=== PATIENT | female | born 1940 | race Caucasian/White ===

== ENCOUNTER 2020-12-15 17:53 | IRF | payer MEDICARE, SELFPAY ==
--- NOTE | ~2020-12-15 | XR_ITS ---
EXAMINATION: XR G tube evaluation w imaging EXAM DATE: 12/15/2020 21:02 INDICATION: Confirm gastrostomy tube placement. TECHNIQUE: Frontal projection(s) of the abdomen for interpretation. Images obtained after injecting a bout 30 mL Omnipaque solution through the gastrostomy tube. There are no prior studies for comparison . FINDINGS: There is contrast within the stomach from the injection, with gastrostomy balloon anchor ap pearing to be in expected position. Additional contrast or dense material within the colon. There is extensive colonic diverticulosis. Nonobstructive bowel gas pattern. There is a needlelike foreign body projecting over the lower aspect of the chest just right of midlin e, uncertain whether or not this is inside the patient. This finding has been indicated, marked on th e examination for review, clinical correlation. IMPRESSION: 1. Gastrostomy tube in position. 2. Needle like foreign body. 3. Extensive colonic diverticulosis. Reviewed, dictated and finalized at location A. HT LOSS SALES CONSULTANT
--- NOTE | ~2020-12-15 | XR_ITS ---
EXAMINATION: XR barium swallow modified DATE: 12/22/2020 12:21 INDICATION: Dysphagia. TECHNIQUE: The patient was given barium-containing material of multiple consistencies to swallow by fara garcía speech pathologist while I performed fluoroscopy. Dose-area product was 2.163 Gy-cm2. 4.8 minutes fluoroscopy time FINDINGS: Oral Stage: Within functional limits Pharyngeal Phase: There is laryngeal penetration with thin liquids. Cough reflex was induced. There is vallecular residue Cervical/Esophageal Stage: Within functional limits IMPRESSION: Modified esophagram findings as above. Please refer to the speech therapy report for spec [facility] recommendations. Reviewed, dictated and finalized at Location A. Reviewed, dictated and finalized at location A. IST BIOLOGICAL IMPRESSION: Modified esophagram findings as above. Please refer to the speech t herapy report for specific recommendations.
--- NOTE | ~2020-12-15 | XR_ITS ---
EXAMINATION: XR barium swallow modified DATE: 01/01/2021 14:00 INDICATION: Dysphagia. TECHNIQUE: The patient was given barium-containing material of multiple consistencies to swallow by t he speech pathologist while I performed fluoroscopy. Fluoroscopy exposure time was 3.3 minutes. The n umber of fluoroscopy images saved to the PACS was 1. Dose-area product was 1.877 Gy-cm^2. FINDINGS: There was laryngeal penetration with multiple consistencies. No aspiration. IMPRESSION: 1. Laryngeal penetration with multiple consistencies. No aspiration. 2. Please refer to the speech therapy report for recommendations. Reviewed, dictated and finalized at location A. TAL PUBLISHING SPECIALIST
[2020-12-15 18:07] VITALS: BP 134/83; PULSE 81; RESP 20; TEMP 36.7; O2SAT 96; BMI 18.9
[2020-12-15 18:14] VITALS: BMI 18.9
[2020-12-15 22:00] VITALS: BP 134/80; PULSE 88; RESP 18; TEMP 36.4; O2SAT 93
[2020-12-16 01:13] LABS: Glucose Point of Care 112 (65-105)
[2020-12-16 05:07] VITALS: BP 115/67; PULSE 88; RESP 18; TEMP 36.4; O2SAT 96
[2020-12-16 05:36] LABS: Basophils Absolute Auto 0.1 K/mm3 (0.0-0.1); Basophils Percent Auto 1.3 % (0.2-1.2); Eosinophils Absolute Auto 0.4 K/mm3 (0-0.3); Eosinophils Percent Auto 5.7 % (0-4.4); Hematocrit 38.5 % (37.0-47.0); Hemoglobin 12.7 g/dL (12.0-15.0); Immature Granulocyte Absolute 0.03 K/mm3 (0.00-0.031); Immature Granulocyte Percent A 0.4 % (0-0.5); Lymphocytes Absolute Auto 0.65 K/mm3 (0.9-3.2); Mean Corpuscular Hemoglobin 28.8 pg (26-34); Mean Corpuscular Volume 87.3 fl (80-100); Mean Platelet Volume 10.8 fl (7.4-10.4); Monocytes Absolute Auto 1.3 K/mm3 (0.1-0.6); Monocytes Percent Auto 17.9 % (2.6-8.5); Neutrophils Absolute Auto 4.7 K/mm3 (1.3-6.7); Neutrophils Percent Auto 65.7 % (45.5-73.1); Platelet Count Result 327 k/mm3 (150-375); Red Blood Count 4.41 M/mm3 (4.2-5.4); Red Cell Distribution Width 13.1 % (11.5-14.5); White Blood Count 7.2 K/mm3 (4.5-10.0)
[2020-12-16] MEDS: LEVOTHYROXINE SODIUM 50 MCG TABLET FEED TUBE (06:02)
[2020-12-16 06:27] LABS: Anion Gap 3 mmol/L (8-16); Blood Urea Nitrogen 25 mg/dL (7-17); Calcium 8.6 mg/dL (8.4-10.2); Carbon Dioxide 28 mmol/L (22-30); Chloride 106 mmol/L (98-107); Estimated CRCL calculation 37 ml/min; Estimated Glomerular Filt Rate > 60; Glucose 120 mg/dL (65-105); Potassium 4.3 mmol/L (3.4-5.0); Sodium 137 mmol/L (137-145)
[2020-12-16 08:00] VITALS: PULSE 88; RESP 18; O2SAT 96
[2020-12-16] MEDS: ATORVASTATIN 40 MG TABLET FEED TUBE (10:08)
--- NOTE | 2020-12-16 11:59 | WPDREHABHP ---
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 Atrial fibrillation 2. DVT 3. Mitral valvular regurgitation 4. Congestive heart failure 5. Dyslipidemia 6. Anxiety 7. GERD 8. Osteoporosis.Patient was seen [id number] on December 16, 2020 at 11:00 a.m. # history and physical exam: the patient is an 80 years old right-handed female with past medical history of cerebrovascular accident and residual visual deficit in 2018 in addition to the history of atrial fibrillation for which she is on Xarelto, mitral regurgitation, presented to [facility] in [place] , transferred from an OSH on December 07, 2020 . the patient and her had just returned home that morning from a physician visit with her neurologist, according to patient and spouse she was in her normal state of health at 1:20 p.m. however at 1:28 p.m. her found her moaning on the floor and her left side was flaccid. EMS was contacted her NIH stroke scale was 25. She had taken Xarelto the day before. Upon arrival to OSH her blood pressure was 154/94, UA was positive, and COVID antigen was negative. Head CT scan revealed no acute intracranial abnormality. 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 The patient was not a candidate for tPA, and she was transferred to [facility] where the patient underwent an emergent clot retrieval with full cannulization. She was subsequently transferred to ICU postop for close monitoring and was placed on strict glucose control and aspiration precautions. Neurology held her anticoagulation and the patient was started on aspirin and statin. She was also placed on ceftriaxone for UTI treatment with urine cultures in progress. Echocardiogram revealed normal left ventricular systolic function, and ejection fraction of 55 to 66%, mildly elevated right ventricular pressure and severely enlarged atria, severe mitral valve stenosis and moderate mitral regurgitation and moderate to severe aortic regurgitation. Patient had required nicardipine for systolic blood pressure controlled cardiologists did not recommend intervention and recommended outpatient follow-up with a physician. In ICU the patient had an acute ICU delirium and placed on Amari cormier RN, which has resolved and the patient is awake alert oriented x3 with only mild cognitive difficulty. The patient has been NPO due to dysphagia with Keofeed placed on admission. The patient underwent a swallow evaluation which reveals severe oropharyngeal dysphagia with delayed, week's swallowing with penetration during the swallowing and silent aspiration after the swallowing with all attempted consistencies. Physician discussed alternate modes of nutrition until swallowing improves with SHIPPER. On December 13, 2020 the patient underwent a PEG tube placement. She is tolerating tube feeding using Jevity 1.2 mily via PEG at50cc/hour continuously. Rocephin for UTI completed on December 15, 2020. The patient was discharged to [facility] on Xarelto for DVT prophylaxis, which she was on routinely prior to hospitalization as well for atrial fibrillation. Physical examination continued to reveal left-sided weakness, balance impairment, cognitive impairment, decreased gross motor control and decreased safety awareness. Neurologist at the hospital felt the patient has the potential for an excellent outcome from the basilar occlusion. #COVID: The patient has
[2020-12-16 12:02] LABS: Glucose Point of Care 115 (65-105)
[2020-12-16] MEDS: dilTIAZem HCL 30 MG TABLET FEED TUBE ×3 (12:05→23:39)
[2020-12-16 14:00] VITALS: BP 139/87; PULSE 100; RESP 18; TEMP 36.8; O2SAT 96
[2020-12-16] MEDS: RIVAROXABAN 20 MG TABLET FEED TUBE (17:27)
--- NOTE | 2020-12-16 18:08 | PC.NURSE ---
x-ray result showed GT in position, extensive colonic diverticulosis. And 'needle like foreign body' projecting over the lower aspect of the chest wall just right of the midline. Brought to Dr. Segovia attention no orders rec'd at this time, stated he will recheck in the future.
[2020-12-16 18:24] LABS: Glucose Point of Care 122 (65-105)
[2020-12-16 20:00] VITALS: PULSE 90; RESP 18; O2SAT 96
[2020-12-16 21:37] VITALS: BP 113/85; PULSE 90; RESP 18; TEMP 36.2; O2SAT 96
[2020-12-17 00:25] LABS: Glucose Point of Care 132 (65-105)
[2020-12-17 04:41] VITALS: BP 107/72; PULSE 85; RESP 18; TEMP 36.6; O2SAT 96
[2020-12-17] MEDS: dilTIAZem HCL 30 MG TABLET FEED TUBE ×4 (05:50→23:50)
[2020-12-17] MEDS: LEVOTHYROXINE SODIUM 50 MCG TABLET FEED TUBE (05:51)
[2020-12-17 06:33] LABS: Glucose Point of Care 103 (65-105)
[2020-12-17] MEDS: ATORVASTATIN 40 MG TABLET FEED TUBE (10:03)
[2020-12-17 13:43] LABS: Glucose Point of Care 123 (65-105)
[2020-12-17 14:00] VITALS: BP 131/78; PULSE 88; RESP 20; TEMP 37; O2SAT 93
[2020-12-17 17:19] LABS: Glucose Point of Care 117 (65-105)
[2020-12-17] MEDS: RIVAROXABAN 20 MG TABLET FEED TUBE (18:13)
[2020-12-17 21:47] VITALS: BP 124/64; PULSE 91; RESP 18; TEMP 36.4; O2SAT 94
[2020-12-18] MEDS: LEVOTHYROXINE SODIUM 50 MCG TABLET FEED TUBE (05:45)
[2020-12-18] MEDS: dilTIAZem HCL 30 MG TABLET FEED TUBE ×3 (05:45→18:21)
[2020-12-18 06:00] VITALS: BP 113/76; PULSE 70; RESP 20; TEMP 36.6; O2SAT 96
[2020-12-18 06:04] LABS: Glucose Point of Care 124 (65-105)
[2020-12-18 08:00] VITALS: PULSE 70; RESP 20; O2SAT 96
[2020-12-18 08:45] VITALS: TEMP 36.6
[2020-12-18] MEDS: ACETAMINOPHEN ELIXIR 325 MG/10.15 ML UDC 650 MG FEED TUBE (08:45)
[2020-12-18] MEDS: ATORVASTATIN 40 MG TABLET FEED TUBE (08:46)
--- NOTE | 2020-12-18 09:43 | WPDNEURORHBP ---
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 Atrial fibrillation 2. DVT 3. Mitral valve regurgitation 4. Congestive heart failure 5. Dyslipidemia 6. Anxiety 7. GERD 8. Osteoporosis. Patient has been involved in the physical therapy and occupational therapy on today's visit she definitely looks more comfortable more communicative and has no specific complaints Review of Systems Review of Systems: All systems reviewed & are unremarkable except as noted in HPI and below Functional Status Transfers Ability Ability to Transfer In/Out of Chair: Moderate Assistance X 1 Exam Const: General: cooperative, no acute distress, alert, awake and ill appearing Nutritional Appearance: average body habitus and thin Orientation/consciousness: patient oriented x3 Limitations: physical limitations HENMT: Head: normocephalic General nose exam: Normal external nose present and No nasal discharge present Face and sinus: normal facial exam Mouth: Yes Normal oral and palatal mucosa present Eyes: General: appearance normal, both eyes and all related structures Alignment and Position: alignment abnormal Neck: Neck: full ROM Resp: Effort & Inspection: normal respiratory effort and able to speak in complete sentences Auscultation: clear to auscultation bilaterally Cardio: Jugular venous distension: no JVD Rhythm: abnormal rhythm GI: Auscultation: normal bowel sounds Skin: General skin exam: no rashes or lesions noted Neuro: General: oriented to person and oriented to place Cranial nerves: Yes Facial sensation intact/muscles of mastication intact, Yes Equal, round and reactive pupils present, Yes Bilaterally intact EOM present, Yes facial symmetry, Yes Midline tongue present and Yes Ability to bilaterally elevate shoulders present Cognition (Neuro): normal cognition Gait exam (Neuro): Assisted gait required Motor exam (neuro): Abnormal motor strength present ( left hemiparesis) and Abnormal muscle tone present Sensory Exam: Sensory deficit (Neuro) Coordination: [id number] test normal ( on the right) Psych: Speech and movement: Clear speech present and Slowed speech present (Psych) Attitude: cooperative Thought process: Normal thought process present Thought content: Yes Normal thought content present Insight: Fair insight present (Psych) Judgement: Fair judgement present (Psych) Objective Data Vital Signs Vital Signs: Vital Signs - 24 hr 12/17/20 14:00 12/17/20 21:47 12/18/20 06:00 Temperature 37.0 C 36.4 C 36.6 C Pulse Rate 88 91 70 Respiratory Rate 20 18 20 Blood Pressure 131/78 124/64 113/76 Pulse Oximetry 93 94 96 12/18/20 08:45 Temperature 36.6 C Pulse Rate Respiratory Rate Blood Pressure Pulse Oximetry Intake/Output Intake/Output: Intake & Output 12/15/20 12/16/20 12/17/20 12/18/20 23:59 23:59 23:59 23:59 Intake Total 1273 Balance 1273 Meds/Results Medications: Active Medications Generic Name Dose Route Start Last Admin Trade Name Freq PRN Reason Stop Dose Admin Acetaminophen 650 mg 12/15/20 23:20 12/18/20 08:45 Acetaminophen Elixir 325 Mg/10.15 Ml Udc FEED TUBE 650 mg QID PRN Administration Pain Rated 1-3 Albuterol 2 puff 12/15/20 22:13 Albuterol Sulfate (*Sp) Aerosol 1 Puff INHALATION Q4-6H PRN Shortness Of Breath Atorvastatin Calcium 40 mg 12/16/20 09:00 12/18/20 08:46 Atorvastatin 40 Mg Tablet FEED TUBE 40 mg DAILY NIKOLE Administration Diltiazem HCl 30 mg 12/16/20 12:05 12/18/20 05:45 Diltiazem Hcl 30 Mg Tablet FEED TUBE 30 mg Q6HR NIKOLE Administration Fluticasone Propionate 2 spray 12/15/20 22:13 Fluticasone Propionate 0.05% Na Spr 16 Gm Btl (*Bkc) NASAL DAILY PRN Congestion Furosemide 20 mg 12/15/20 22:1
--- NOTE | 2020-12-18 11:11 | RPD ---
INDIVIDUALIZED PLAN OF CARE FOR Sarah Ghosh Brief Synthesis of Pre-Admission Screen, Post-Admission Evaluation and Therapy Evaluations: The patient presents to rehab with an acute basilar artery thrombosis s/p thrombectomy. 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 The complexity of the patient's medical management, nursing, and therapy needs require an inpatient rehab hospital stay with a physician-led interdisciplinary team approach. The patient?s needs will be best met in an intensive program vs. at a lower level of care. The patient requires physician services for neurology services, medical oversight, and coordination of care. Emotional needs will be monitored as depression is a common sequelae of stroke. The patient needs physician monitoring and treatment of hypertension, hypocalcemia, dysphagia, UTI, acute hypoxic respiratory failure, hyperglycemia, monitoring for adverse reactions to new medications, monitoring of infection, and pain control. The patient requires nursing services for frequent neuro checks, anticoagulation therapy, medication management and education, pressure relief and skin care management, monitoring of labs, bowel and bladder training, diabetes management and education, and fall/safety precautions. Deficits include:ADLs, Balance, Cognition, Endurance, Family Training/Education, Mobility, Pain Management, ROM, Safety, Speech, Strength, Swallowing, and Transfers. Recoater/Case Management for: Discharge Planning and Patient/Family Counseling Physical Therapy: 5 days per week for 60 minutes. Treatments may include: Therapeutic Exercise, Gait Training, Neuromuscular Re-education, Transfer Training, Community Reintegration, Bed Mobility, Patient/Family Education, Wheelchair Mobility Group Therapy/Concurrent Therapy Rationales: -Improve attention span during functional activities in a distracted environment. -Enhance problem solving and/or adequate judgment skills during functional activities in a distracted environment. -Promote increased safety awareness in a distracted environment to reduce fall risk with functional tasks, transfers, and ambulation to allow a more safe, self-sufficient return to the home environment. -Improve dynamic balance skills to promote safety and independence with functional activities in a distracted environment for maximum gain. Occupational Therapy: 5 days per week for 60 minutes. Treatments may include: Therapeutic Exercise, Therapeutic Activity, Cognitive Training, Self-Care Transfer Training, Community Reintegration, Home Management, Patient/Family Education, Wheelchair Mobility Training, Energy Conservation Training Group Therapy/Concurrent Therapy Rationales: -Allow therapist to observe and teach generalization and carry-over of skills learned in individual therapy. -Enhance problem solving and sequencing skills during therapeutic activities in a distracted environment. -Promote increased safety awareness in a realistic setting to reduce fall risk with functional tasks due to visual and verbal distractions. -Increase functional level with ADLs, ADL transfers and use of adaptive equipment through therapeutic activities with others while promoting safety to allow a more safe, self-sufficient return home. Speech Therapy: 5 days per week for 60 minutes. Treatments may include: Dysphasia Therapy, Speech/Language/Communication Therapy, Cognitive Training, Patient/Family Education Group Therapy/Concurrent Therapy - Rationale: -Allow therapist to observe and teach generalization and carry-over of skills learned in individual therapy. -Improve comprehension skills with complex or abstract idea
[2020-12-18 12:19] LABS: Glucose Point of Care 117 (65-105)
[2020-12-18 14:00] VITALS: BP 116/78; PULSE 104; RESP 18; TEMP 36.2; O2SAT 98
[2020-12-18 14:38] VITALS: BMI 20.5
--- NOTE | 2020-12-18 15:28 | PCNSR ---
On 12/18/20, the student, Evie Pickering, provided care and completed [facility] documentation on this patient. I have reviewed the student's documentation and agree with the findings.
[2020-12-18] MEDS: RIVAROXABAN 20 MG TABLET FEED TUBE (18:21)
[2020-12-18 21:25] VITALS: BP 122/72; PULSE 56; RESP 22; TEMP 36.2; O2SAT 97
[2020-12-19] MEDS: dilTIAZem HCL 30 MG TABLET FEED TUBE ×4 (00:21→17:53)
[2020-12-19] MEDS: ACETAMINOPHEN ELIXIR 325 MG/10.15 ML UDC 650 MG FEED TUBE (00:23)
[2020-12-19 00:37] LABS: Glucose Point of Care 104 (65-105)
[2020-12-19 05:35] VITALS: BP 109/65; PULSE 73; RESP 22; TEMP 36; O2SAT 100
[2020-12-19] MEDS: LEVOTHYROXINE SODIUM 50 MCG TABLET FEED TUBE (06:38)
[2020-12-19 06:46] LABS: Glucose Point of Care 120 (65-105)
[2020-12-19 09:38] VITALS: RESP 20; TEMP 36.6
[2020-12-19] MEDS: ATORVASTATIN 40 MG TABLET FEED TUBE (09:48)
[2020-12-19 12:09] LABS: Glucose Point of Care 87 (65-105)
--- NOTE | 2020-12-19 12:49 | PCNFU ---
Nutrition Follow-Up Complete: Swallowing difficulties related to dysphagia as evidenced by PEG tube. Goal: Patient to tolerate tube feedings at goal rate Pt current nutrition is Jevity 1.5 @ 65 with prostat once a day. Last recorded weight is 54.1 kg. Recommend re-weighing patient. Bowel Motility: + BM 12/18 Labs Reviewed: Glu 120 Meds Noted: Albuterol, Lipitor, Synthroid, Proventil, Seroquel, Xarelto, Antivert Additional Notes: Spoke with patient today. Patient reports having no appetite and not wanting to try to eat anything. She is very weak. Patient is currently on Jevity 1.5 @ 65 ml/hr for 13 hours as well as prostat flush once a day providing 1367 calories, 642 mls of water, and 69 grams of protein. Monitor patients labs, medications, weight, and tube feeding every Friday and Friday.
--- NOTE | 2020-12-19 13:08 | PCNSR ---
On 12/19/20, the student,Evie Pickering, provided care and completed [facility] documentation on this patient. I have reviewed the student's documentation and agree with the findings.
--- NOTE | 2020-12-19 13:13 | WPDNEURORHBP ---
Subjective Date/time seen: 12/19/20 13:13 80 years old with diagnosis of stroke secondary to acute basilar artery thrombosis and status post thrombectomy but significant neurological deficit has ongoing diagnosis of atrial fibrillation, DVT, mitral valve regurgitation, congestive heart failure, dyslipidemia, anxiety, GERD, and osteoporosis patient has been involved in the physical therapy and occupational therapy case was discussed in the Family weekly me and if everything goes well she will be discharged on January 04, 2021 Review of Systems Review of Systems: All systems reviewed & are unremarkable except as noted in HPI and below Functional Status Transfers Ability Ability to Transfer In/Out of Chair: Moderate Assistance X 1 Exam Const: General: cooperative, no acute distress, alert, awake, anxious and ill appearing Nutritional Appearance: average body habitus and thin Orientation/consciousness: oriented to person and oriented to place Limitations: other limitations ( left-sided neurological deficit) HENMT: Head: normocephalic Ears: hearing grossly normal bilaterally General nose exam: No nasal discharge present Eyes: General: appearance normal, both eyes and all related structures Eyelids: eyelids normal Conjunctivae: conjunctivae normal Sclera: sclerae normal Cornea: corneas normal Neck: Neck: full ROM Resp: Effort & Inspection: normal respiratory effort and able to speak in complete sentences Auscultation: clear to auscultation bilaterally Cardio: Jugular venous distension: no JVD Rhythm: abnormal rhythm GI: Auscultation: normal bowel sounds Neuro: General: oriented to person, oriented to place, moves all extremities and no meningeal signs Cranial nerves: Yes Equal, round and reactive pupils present, Yes Normal accommodation reflex present, Yes Bilaterally intact EOM present, Yes Nystagmus not present, Yes Normal facial strength present, Yes Midline tongue present and Yes Normal hearing present Cognition (Neuro): normal cognition Gait exam (Neuro): Unable to assess gait Motor exam (neuro): Abnormal motor strength present ( left-sided neurological deficit) Sensory Exam: Sensory deficit (Neuro) Deep tendon reflexes (DTR's): Right triceps reflex intensity grade: 1+, Left triceps reflex intensity grade: 2+, Rt Biceps (C5, C6): 1+, Left biceps reflex intensity grade: 2+, Right brachioradialis reflex intensity grade: 1+, Left brachioradialis reflex intensity grade: 2+, Right patellar reflex intensity grade: 1+, Left patellar reflex intensity grade: 2+, Right ankle reflex intensity grade: 1+ and Left ankle reflex intensity grade: 2+ Plantar Reflex Responses: downgoing: right and upgoing (positive Babinski): left Coordination: [id number] test normal ( right side) Psych: Speech and movement: Normal speech and movement present Affect: Sad affect present Thought content: Yes Normal thought content present Insight: Fair insight present (Psych) Objective Data Vital Signs Vital Signs: Vital Signs - 24 hr 12/18/20 14:00 12/18/20 21:25 12/19/20 05:35 Temperature 36.2 C L 36.2 C L 36.0 C L Pulse Rate 104 H 56 L 73 Respiratory Rate 18 22 H 22 H Blood Pressure 116/78 122/72 109/65 Pulse Oximetry 98 97 100 12/19/20 09:38 Temperature 36.6 C Pulse Rate Respiratory Rate 20 Blood Pressure Pulse Oximetry Intake/Output Intake/Output: Intake & Output 12/16/20 12/17/20 12/18/20 12/19/20 23:59 23:59 23:59 23:59 Intake Total 1273 Balance 1273 Meds/Results Medications: Active Medications Generic Name Dose Route Start Last Admin Trade Name Freq PRN Reason Stop Dose Admin Acetaminophen 650 mg 12/15/20 23:20 12/19/20 00:23 Acetaminophen Elixir 325 Mg/10.15 Ml Udc FEED TUBE 650 mg QID PRN Administration Pain Rated 1-3 Albuterol 2 puff 12/15/20 22:13 Albuterol Sulfate (*Sp) Aerosol 1 Puff INHALATION Q4-6H PRN Shortness Of Breath Atorvastatin Calcium 40 mg 12/16/20 09:0
[2020-12-19 14:00] VITALS: BP 115/70; PULSE 46; RESP 18; TEMP 36.8; O2SAT 100
[2020-12-19 16:31] VITALS: PULSE 92
[2020-12-19 16:55] LABS: Glucose Point of Care 100 (65-105)
[2020-12-19] MEDS: RIVAROXABAN 20 MG TABLET FEED TUBE (17:53)
[2020-12-19] MEDS: NEOMYCIN/POLYMYXIN/BACITRACIN OINTMENT 15 GM TUBE 1 APPLIC TOPICAL (19:05)
[2020-12-19 21:38] LABS: Glucose Point of Care 123 (65-105)
[2020-12-19 21:56] VITALS: BP 106/67; PULSE 77; RESP 18; TEMP 36.5; O2SAT 97
[2020-12-20] MEDS: dilTIAZem HCL 30 MG TABLET FEED TUBE ×5 (00:30→23:25)
[2020-12-20] MEDS: ACETAMINOPHEN ELIXIR 325 MG/10.15 ML UDC 650 MG FEED TUBE (00:31)
[2020-12-20 06:00] VITALS: BP 114/57; PULSE 64; RESP 20; TEMP 36.4; O2SAT 98
[2020-12-20] MEDS: LEVOTHYROXINE SODIUM 50 MCG TABLET FEED TUBE (06:13)
[2020-12-20 06:30] LABS: Glucose Point of Care 126 (65-105)
[2020-12-20] MEDS: NEOMYCIN/POLYMYXIN/BACITRACIN OINTMENT 15 GM TUBE 1 APPLIC TOPICAL (09:38)
[2020-12-20] MEDS: ATORVASTATIN 40 MG TABLET FEED TUBE (09:38)
[2020-12-20 14:00] VITALS: BP 120/76; PULSE 85; RESP 22; TEMP 36.6; O2SAT 95
--- NOTE | 2020-12-20 16:19 | WPDNEURORHBP ---
Subjective Date/time seen: is status post stroke with acute basilar artery thrombosis and followed by thrombectomy but with left-sided neurological deficit in addition to history of atrial fibrillation, mitral valve regurgitation, DVT, congestive heart failure, GERD, osteoporosis, and anxiety. Vital signs today are stable she is afebrile with temp of 36.6? pulse ox 95% respiration 22 pulse 85 blood pressure 120/76, there is no specific change in the medication she is continuing on rivaroxaban 20 mg daily and has no new lab Review of Systems Review of Systems: All systems reviewed & are unremarkable except as noted in HPI and below Functional Status Ambulation Ability Ambulation Assistive Devices: Parallel Bars Transfers Ability Ability to Transfer In/Out of Chair: Moderate Assistance X 1 Exam Const: General: cooperative, comfortable and no acute distress Nutritional Appearance: average body habitus and thin Orientation/consciousness: patient oriented x3 Limitations: physical limitations HENMT: Ears: hearing grossly normal bilaterally Eyes: General: appearance normal, both eyes and all related structures Neck: Neck: full ROM Resp: Effort & Inspection: normal respiratory effort and able to speak in complete sentences Auscultation: clear to auscultation bilaterally Cardio: Rate: regular rate Rhythm: abnormal rhythm GI: Auscultation: normal bowel sounds Skin: General skin exam: no rashes or lesions noted Neuro: General: patient oriented x3 Cranial nerves: Yes CN's II-XII intact bilaterally Cognition (Neuro): normal cognition Gait exam (Neuro): Assisted gait required Motor exam (neuro): Abnormal motor strength present Sensory Exam: Sensory deficit (Neuro) Coordination: [id number] test normal ( right side) Psych: Appearance: grossly normal Objective Data Vital Signs Vital Signs: Vital Signs - 24 hr 12/19/20 16:31 12/19/20 21:56 12/20/20 06:00 Temperature 36.5 C 36.4 C Pulse Rate 92 77 64 Respiratory Rate 18 20 Blood Pressure 106/67 114/57 L Pulse Oximetry 97 98 12/20/20 14:00 Temperature 36.6 C Pulse Rate 85 Respiratory Rate 22 H Blood Pressure 120/76 Pulse Oximetry 95 Meds/Results Medications: Active Medications Generic Name Dose Route Start Last Admin Trade Name Freq PRN Reason Stop Dose Admin Acetaminophen 650 mg 12/15/20 23:20 12/20/20 00:31 Acetaminophen Elixir 325 Mg/10.15 Ml Udc FEED TUBE 650 mg QID PRN Administration Pain Rated 1-3 Albuterol 2 puff 12/15/20 22:13 Albuterol Sulfate (*Sp) Aerosol 1 Puff INHALATION Q4-6H PRN Shortness Of Breath Atorvastatin Calcium 40 mg 12/16/20 09:00 12/20/20 09:38 Atorvastatin 40 Mg Tablet FEED TUBE 40 mg DAILY NIKOLE Administration Diltiazem HCl 30 mg 12/16/20 12:05 12/20/20 13:14 Diltiazem Hcl 30 Mg Tablet FEED TUBE 30 mg Q6HR NIKOLE Administration Fluticasone Propionate 2 spray 12/15/20 22:13 Fluticasone Propionate 0.05% Na Spr 16 Gm Btl (*Bkc) NASAL DAILY PRN Congestion Furosemide 20 mg 12/15/20 22:13 Furosemide 20 Mg Tablet FEED TUBE DAILY PRN Edema Levothyroxine Sodium 50 mcg 12/16/20 06:30 12/20/20 06:13 Levothyroxine Sodium 50 Mcg Tablet FEED TUBE 50 mcg DAILY@0630 NIKOLE Administration Meclizine HCl 25 mg 12/15/20 22:13 Meclizine Hcl 25 Mg Tablet FEED TUBE BID PRN Dizziness Neomycin/Polymyxin/Bacitracin 1 applic 12/19/20 18:55 12/20/20 09:38 Neomycin/Polymyxin/Bacitracin Ointment 15 Gm Tube TOPICAL 1 applic QAM NIKOLE Administration Quetiapine Fumarate 12.5 mg 12/15/20 21:00 Quetiapine Fumarate 12.5 Mg Tablet FEED TUBE HS PRN NIGHTLY AGITATION Rivaroxaban 20 mg 12/16/20 17:00 12/19/20 17:53 Rivaroxaban 20 Mg Tablet FEED TUBE 20 mg DAILY@1700 [facility] Administration Radiology Results: ITS Impressions Contrast Injection Evaluation 12/15/20 21:08 IMPRESSION: 1. Gastrostomy tube i
[2020-12-20] MEDS: RIVAROXABAN 20 MG TABLET FEED TUBE (18:21)
[2020-12-20 20:00] VITALS: PULSE 87; RESP 20; O2SAT 98
[2020-12-20 21:53] VITALS: BP 120/70; PULSE 87; RESP 20; TEMP 36.7; O2SAT 98
[2020-12-21 05:47] VITALS: BP 114/84; PULSE 84; RESP 18; TEMP 36.6; O2SAT 93
[2020-12-21] MEDS: dilTIAZem HCL 30 MG TABLET FEED TUBE ×4 (05:58→23:43)
[2020-12-21] MEDS: LEVOTHYROXINE SODIUM 50 MCG TABLET FEED TUBE (05:58)
[2020-12-21 06:32] LABS: Glucose Point of Care 134 (65-105)
[2020-12-21] MEDS: ATORVASTATIN 40 MG TABLET FEED TUBE (08:56)
[2020-12-21] MEDS: NEOMYCIN/POLYMYXIN/BACITRACIN OINTMENT 15 GM TUBE 1 APPLIC TOPICAL (08:56)
--- NOTE | 2020-12-21 12:43 | WPDNEURORHBP ---
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 pulse 84 respiration 18 pulse ox 93% blood pressure 114/84 Review of Systems Review of Systems: All systems reviewed & are unremarkable except as noted in HPI and below Functional Status Ambulation Ability Ambulation Assistive Devices: Parallel Bars Transfers Ability Ability to Transfer In/Out of Chair: Moderate Assistance X 1 Exam Const: General: cooperative Nutritional Appearance: average body habitus and thin Orientation/consciousness: oriented to person HENMT: Head: normocephalic Ears: hearing grossly normal bilaterally General nose exam: Normal external nose present Face and sinus: normal facial exam Mouth: Yes Normal oral and palatal mucosa present Neck: Neck: full ROM Resp: Effort & Inspection: normal respiratory effort Auscultation: clear to auscultation bilaterally Cardio: Jugular venous distension: no JVD Rate: regular rate GI: Auscultation: normal bowel sounds Skin: General skin exam: no rashes or lesions noted Neuro: General: oriented to person and oriented to place Cognition (Neuro): normal cognition Gait exam (Neuro): Assisted gait required Motor exam (neuro): Abnormal motor strength present ( left hemiparesis) and Abnormal muscle tone present Sensory Exam: Sensory deficit (Neuro) Plantar Reflex Responses: upgoing (positive Babinski): left and equivocal: right and bilateral Coordination: [id number] test normal ( right side) Objective Data Vital Signs Vital Signs: Vital Signs - 24 hr 12/20/20 14:00 12/20/20 20:00 12/20/20 21:53 Temperature 36.6 C 36.7 C Pulse Rate 85 87 87 Respiratory Rate 22 H 20 20 Blood Pressure 120/76 120/70 Pulse Oximetry 95 98 98 12/21/20 05:47 Temperature 36.6 C Pulse Rate 84 Respiratory Rate 18 Blood Pressure 114/84 Pulse Oximetry 93 Meds/Results Medications: Active Medications Generic Name Dose Route Start Last Admin Trade Name Freq PRN Reason Stop Dose Admin Acetaminophen 650 mg 12/15/20 23:20 12/20/20 00:31 Acetaminophen Elixir 325 Mg/10.15 Ml Udc FEED TUBE 650 mg QID PRN Administration Pain Rated 1-3 Albuterol 2 puff 12/15/20 22:13 Albuterol Sulfate (*Sp) Aerosol 1 Puff INHALATION Q4-6H PRN Shortness Of Breath Atorvastatin Calcium 40 mg 12/16/20 09:00 12/21/20 08:56 Atorvastatin 40 Mg Tablet FEED TUBE 40 mg DAILY NIKOLE Administration Diltiazem HCl 30 mg 12/16/20 12:05 12/21/20 12:25 Diltiazem Hcl 30 Mg Tablet FEED TUBE 30 mg Q6HR NIKOLE Administration Fluticasone Propionate 2 spray 12/15/20 22:13 Fluticasone Propionate 0.05% Na Spr 16 Gm Btl (*Bkc) NASAL DAILY PRN Congestion Furosemide 20 mg 12/15/20 22:13 Furosemide 20 Mg Tablet FEED TUBE DAILY PRN Edema Levothyroxine Sodium 50 mcg 12/16/20 06:30 12/21/20 05:58 Levothyroxine Sodium 50 Mcg Tablet FEED TUBE 50 mcg DAILY@0630 NIKOLE Administration Meclizine HCl 25 mg 12/15/20 22:13 Meclizine Hcl 25 Mg Tablet FEED TUBE BID PRN Dizziness Neomycin/Polymyxin/Bacitracin 1 applic 12/19/20 18:55 12/21/20 08:56 Neomycin/Polymyxin/Bacitracin Ointment 15 Gm Tube TOPICAL 1 applic QAM NIKOLE Administration Quetiapine Fumarate 12.5 mg 12/15/20 21:00 Quetiapine Fumarate 12.5 Mg Tablet FEED TUBE HS PRN NIGHTLY AGITATION Rivaroxaban 20 mg 12/16/20 17:00 0
[2020-12-21 14:00] VITALS: BP 119/71; PULSE 72; RESP 18; TEMP 37.1; O2SAT 100
[2020-12-21] MEDS: RIVAROXABAN 20 MG TABLET FEED TUBE (17:15)
[2020-12-21 20:00] VITALS: PULSE 66; RESP 20; O2SAT 99
[2020-12-21 20:46] LABS: Glucose Point of Care 122 (65-105)
[2020-12-21 22:00] VITALS: BP 109/61; PULSE 66; RESP 18; TEMP 36.7; O2SAT 99
[2020-12-22 04:50] VITALS: BP 116/83; PULSE 88; RESP 20; TEMP 36.8; O2SAT 97
[2020-12-22] MEDS: dilTIAZem HCL 30 MG TABLET FEED TUBE ×3 (05:10→17:30)
[2020-12-22] MEDS: LEVOTHYROXINE SODIUM 50 MCG TABLET FEED TUBE (05:10)
[2020-12-22 06:21] LABS: Glucose Point of Care 139 (65-105)
[2020-12-22] MEDS: ATORVASTATIN 40 MG TABLET FEED TUBE (08:20)
[2020-12-22] MEDS: ACETAMINOPHEN ELIXIR 325 MG/10.15 ML UDC 650 MG FEED TUBE (08:20)
[2020-12-22] MEDS: NEOMYCIN/POLYMYXIN/BACITRACIN OINTMENT 15 GM TUBE 1 APPLIC TOPICAL (08:29)
--- NOTE | 2020-12-22 12:03 | PCDIET ---
Nutrition Follow-Up Complete: Nutrition Diagnosis: Swallowing difficulties related to dysphagia as evidenced by PEG tube. Nutrition Goal: Patient to tolerate tube feedings at goal rate Goal met. Patient tolerating Jevity 1.5 at 65mL/hr x 13 hours per day with Pro-Stat 1x daily and 30mL water flush every 4 hours. No issues, per RN. Plan for swallow study today. Last recorded weight is 52.9 kg which is down from last review, but up from admission. Bowel Motility: Last documented BM on 12/21/20. Labs Reviewed: Glu (139) Meds Noted: Lipitor, Synthroid, Cardizem Additional Notes: No documented skin breakdown. Will continue to monitor with same goals. Nutrition Monitoring and Evaluation: Follow up every Friday/Friday.
[2020-12-22 14:00] VITALS: BP 139/70; PULSE 82; RESP 20; TEMP 36.4; O2SAT 99
--- NOTE | 2020-12-22 15:03 | WPDNEURORHBP ---
Subjective Date/time seen: 12/22/20 15:03 acute basilar artery thrombosis followed by the thrombotic me and with residual neurological deficits particularly on the left side has been involved in the physical therapy and occupational therapy and generally stable, her vital signs are stable Review of Systems Review of Systems: All systems reviewed & are unremarkable except as noted in HPI and below Functional Status Ambulation Ability Ambulation Assistive Devices: Parallel Bars Transfers Ability Ability to Transfer In/Out of Chair: Moderate Assistance X 1 Exam Const: General: cooperative and comfortable Nutritional Appearance: average body habitus and thin Limitations: physical limitations Eyes: General: appearance normal, both eyes and all related structures Neck: Neck: full ROM Resp: Effort & Inspection: normal respiratory effort Auscultation: clear to auscultation bilaterally Cardio: Rate: regular rate Rhythm: regular rhythm GI: Auscultation: normal bowel sounds Neuro: General: oriented to person and oriented to place Cognition (Neuro): abnormal cognition Speech: normal speech Gait exam (Neuro): Assisted gait required Motor exam (neuro): Abnormal motor strength present Sensory Exam: Sensory deficit (Neuro) Plantar Reflex Responses: equivocal: bilateral Psych: Appearance: grossly normal Objective Data Vital Signs Vital Signs: Vital Signs - 24 hr 12/21/20 20:00 12/21/20 22:00 12/22/20 04:50 Temperature 36.7 C 36.8 C Pulse Rate 66 66 88 Respiratory Rate 20 18 20 Blood Pressure 109/61 116/83 Pulse Oximetry 99 99 97 Intake/Output Intake/Output: Intake & Output 12/19/20 12/20/20 12/21/20 12/22/20 23:59 23:59 23:59 23:59 Intake Total 1080 Balance 1080 Meds/Results Medications: Active Medications Generic Name Dose Route Start Last Admin Trade Name Freq PRN Reason Stop Dose Admin Acetaminophen 650 mg 12/15/20 23:20 12/22/20 08:20 Acetaminophen Elixir 325 Mg/10.15 Ml Udc FEED TUBE 650 mg QID PRN Administration Pain Rated 1-3 Albuterol 2 puff 12/15/20 22:13 Albuterol Sulfate (*Sp) Aerosol 1 Puff INHALATION Q4-6H PRN Shortness Of Breath Atorvastatin Calcium 40 mg 12/16/20 09:00 12/22/20 08:20 Atorvastatin 40 Mg Tablet FEED TUBE 40 mg DAILY NIKOLE Administration Diltiazem HCl 30 mg 12/16/20 12:05 12/22/20 12:46 Diltiazem Hcl 30 Mg Tablet FEED TUBE 30 mg Q6HR NIKOLE Administration Fluticasone Propionate 2 spray 12/15/20 22:13 Fluticasone Propionate 0.05% Na Spr 16 Gm Btl (*Bkc) NASAL DAILY PRN Congestion Furosemide 20 mg 12/15/20 22:13 Furosemide 20 Mg Tablet FEED TUBE DAILY PRN Edema Levothyroxine Sodium 50 mcg 12/16/20 06:30 12/22/20 05:10 Levothyroxine Sodium 50 Mcg Tablet FEED TUBE 50 mcg DAILY@0630 NIKOLE Administration Meclizine HCl 25 mg 12/15/20 22:13 Meclizine Hcl 25 Mg Tablet FEED TUBE BID PRN Dizziness Neomycin/Polymyxin/Bacitracin 1 applic 12/19/20 18:55 12/22/20 08:29 Neomycin/Polymyxin/Bacitracin Ointment 15 Gm Tube TOPICAL 1 applic QAM NIKOLE Administration Quetiapine Fumarate 12.5 mg 12/15/20 21:00 Quetiapine Fumarate 12.5 Mg Tablet FEED TUBE HS PRN NIGHTLY AGITATION Rivaroxaban 20 mg 12/16/20 17:00 12/21/20 17:15 Rivaroxaban 20 Mg Tablet FEED TUBE 20 mg DAILY@1700 NIKOLE Administration Radiology Results: ITS Impressions Contrast Injection Evaluation 12/15/20 21:08 IMPRESSION: 1. Gastrostomy tube in position. 2. Needle like foreign body. 3. Extensive colonic diverticulosis. Labs Labs: Laboratory Results - last 24 hr 12/21/20 12/22/20 20:41 06:18 POC Capillary Glucose 122 H 139 H Progress Note: A&P Assessment and Plan (1) Hemorrhoids: Code(s): K64.9 - Unspecified hemorrhoids Status: Acute (2) Mild cognitive impairment: Code(s): G31.84 - Mild cognitive impai
[2020-12-22] MEDS: RIVAROXABAN 20 MG TABLET FEED TUBE (17:30)
[2020-12-22 22:00] VITALS: BP 111/63; PULSE 69; RESP 18; TEMP 36.4; O2SAT 98
[2020-12-23] MEDS: dilTIAZem HCL 30 MG TABLET FEED TUBE ×5 (00:37→23:41)
[2020-12-23 00:44] LABS: Glucose Point of Care 129 (65-105)
[2020-12-23 04:55] LABS: Basophils Absolute Auto 0.1 K/mm3 (0.0-0.1); Eosinophils Absolute Auto 0.3 K/mm3 (0-0.3); Eosinophils Percent Auto 5.8 % (0-4.4); Hematocrit 39.7 % (37.0-47.0); Hemoglobin 12.7 g/dL (12.0-15.0); Immature Granulocyte Absolute 0.02 K/mm3 (0.00-0.031); Immature Granulocyte Percent A 0.3 % (0-0.5); Lymphocytes Absolute Auto 0.61 K/mm3 (0.9-3.2); Lymphocytes Percent Auto 10.7 % (18.3-44.2); Mean Corpuscular Hemoglobin 29.1 pg (26-34); Mean Corpuscular Volume 91.1 fl (80-100); Mean Platelet Volume 10.4 fl (7.4-10.4); Monocytes Percent Auto 18.2 % (2.6-8.5); Neutrophils Absolute Auto 3.7 K/mm3 (1.3-6.7); Platelet Count Result 365 k/mm3 (150-375); Red Blood Count 4.36 M/mm3 (4.2-5.4); Red Cell Distribution Width 12.9 % (11.5-14.5); White Blood Count 5.7 K/mm3 (4.5-10.0)
[2020-12-23 05:09] LABS: Anion Gap 4 mmol/L (8-16); Blood Urea Nitrogen 30 mg/dL (7-17); Calcium 8.5 mg/dL (8.4-10.2); Carbon Dioxide 32 mmol/L (22-30); Chloride 104 mmol/L (98-107); Estimated CRCL calculation 39 ml/min; Estimated Glomerular Filt Rate > 60; Glucose 93 mg/dL (65-105); Potassium 4.1 mmol/L (3.4-5.0); Sodium 140 mmol/L (137-145)
[2020-12-23] MEDS: LEVOTHYROXINE SODIUM 50 MCG TABLET FEED TUBE (05:09)
[2020-12-23 05:13] VITALS: BP 114/66; PULSE 61; RESP 18; TEMP 36.3; O2SAT 96
[2020-12-23 05:55] LABS: Glucose Point of Care 98 (65-105)
[2020-12-23] MEDS: NEOMYCIN/POLYMYXIN/BACITRACIN OINTMENT 15 GM TUBE 1 APPLIC TOPICAL (09:06)
[2020-12-23] MEDS: ATORVASTATIN 40 MG TABLET FEED TUBE (09:06)
[2020-12-23 14:00] VITALS: BP 121/67; PULSE 69; RESP 18; TEMP 36.1; O2SAT 95
[2020-12-23] MEDS: RIVAROXABAN 20 MG TABLET FEED TUBE (18:08)
[2020-12-23 21:25] VITALS: BP 107/66; PULSE 49; RESP 20; TEMP 36.1; O2SAT 94
[2020-12-23 23:41] VITALS: PULSE 68
[2020-12-24 05:16] VITALS: BP 130/59; PULSE 86; RESP 16; TEMP 36.3; O2SAT 98
[2020-12-24] MEDS: dilTIAZem HCL 30 MG TABLET FEED TUBE ×4 (05:44→23:00)
[2020-12-24] MEDS: LEVOTHYROXINE SODIUM 50 MCG TABLET FEED TUBE (05:44)
[2020-12-24 06:01] LABS: Glucose Point of Care 143 (65-105)
[2020-12-24] MEDS: NEOMYCIN/POLYMYXIN/BACITRACIN OINTMENT 15 GM TUBE 1 APPLIC TOPICAL (08:55)
[2020-12-24] MEDS: ATORVASTATIN 40 MG TABLET FEED TUBE (08:55)
[2020-12-24 14:00] VITALS: BP 118/72; PULSE 97; RESP 16; TEMP 36.7; O2SAT 97
[2020-12-24] MEDS: RIVAROXABAN 20 MG TABLET FEED TUBE (17:18)
[2020-12-24 20:30] VITALS: PULSE 77; RESP 18; O2SAT 96
[2020-12-24 21:31] VITALS: BP 96/64; PULSE 77; RESP 18; TEMP 35.8; O2SAT 96
[2020-12-25] MEDS: dilTIAZem HCL 30 MG TABLET FEED TUBE ×4 (05:42→22:59)
[2020-12-25] MEDS: LEVOTHYROXINE SODIUM 50 MCG TABLET FEED TUBE (05:42)
[2020-12-25 05:48] VITALS: BP 109/50; PULSE 75; RESP 16; TEMP 35.7; O2SAT 98
[2020-12-25 06:36] LABS: Glucose Point of Care 133 (65-105)
[2020-12-25] MEDS: ATORVASTATIN 40 MG TABLET FEED TUBE (09:41)
--- NOTE | 2020-12-25 11:01 | WPDNEURORHBP ---
Subjective Date/time seen: 12/25/20 11:01 acute basilar artery thrombosis followed the neurological deficit on the left side has been extremely communicative now involving all the therapies and has no specific complaints Review of Systems Review of Systems: All systems reviewed & are unremarkable except as noted in HPI and below Functional Status Ambulation Ability Ambulation Assistive Devices: Parallel Bars Transfers Ability Ability to Transfer In/Out of Chair: Moderate Assistance X 1 Exam Const: General: no acute distress HENMT: Head: normal to inspection Ears: hearing grossly normal bilaterally Face and sinus: normal facial exam Mouth: Yes Normal oral and palatal mucosa present Neck: Neck: full ROM and no lymphadenopathy Resp: Effort & Inspection: normal respiratory effort and able to speak in complete sentences Auscultation: clear to auscultation bilaterally Cardio: Rate: regular rate GI: Auscultation: normal bowel sounds Neuro: General: patient oriented x3 Cranial nerves: Yes CN's II-XII intact bilaterally Motor exam (neuro): Abnormal motor strength present Deep tendon reflexes (DTR's): Right triceps reflex intensity grade: 1+, Left triceps reflex intensity grade: 2+, Rt Biceps (C5, C6): 1+, Left biceps reflex intensity grade: 2+, Right brachioradialis reflex intensity grade: 1+, Left brachioradialis reflex intensity grade: 2+, Right patellar reflex intensity grade: 1+, Right ankle reflex intensity grade: 1+ and Left ankle reflex intensity grade: 2+ Plantar Reflex Responses: downgoing: right Psych: Appearance: grossly normal Objective Data Vital Signs Vital Signs: Vital Signs - 24 hr 12/24/20 14:00 12/24/20 20:30 12/24/20 21:31 Temperature 36.7 C 35.8 C L Pulse Rate 97 77 77 Respiratory Rate 16 18 18 Blood Pressure 118/72 96/64 L Pulse Oximetry 97 96 96 12/25/20 05:48 Temperature 35.7 C L Pulse Rate 75 Respiratory Rate 16 Blood Pressure 109/50 L Pulse Oximetry 98 Intake/Output Intake/Output: Intake & Output 12/22/20 12/23/20 12/24/20 12/25/20 23:59 23:59 23:59 23:59 Intake Total 1080 Balance 1080 Meds/Results Medications: Active Medications Generic Name Dose Route Start Last Admin Trade Name Freq PRN Reason Stop Dose Admin Acetaminophen 650 mg 12/15/20 23:20 02/26/21 08:20 Acetaminophen Elixir 325 Mg/10.15 Ml Udc FEED TUBE 650 mg QID PRN Administration Pain Rated 1-3 Albuterol 2 puff 12/15/20 22:13 Albuterol Sulfate (*Sp) Aerosol 1 Puff INHALATION Q4-6H PRN Shortness Of Breath Atorvastatin Calcium 40 mg 12/16/20 09:00 12/25/20 09:41 Atorvastatin 40 Mg Tablet FEED TUBE 40 mg DAILY NIKOLE Administration Diltiazem HCl 30 mg 12/16/20 12:05 12/25/20 05:42 Diltiazem Hcl 30 Mg Tablet FEED TUBE 30 mg Q6HR NIKOLE Administration Fluticasone Propionate 2 spray 12/15/20 22:13 Fluticasone Propionate 0.05% Na Spr 16 Gm Btl (*Bkc) NASAL DAILY PRN Congestion Furosemide 20 mg 12/15/20 22:13 Furosemide 20 Mg Tablet FEED TUBE DAILY PRN Edema Levothyroxine Sodium 50 mcg 12/16/20 06:30 12/25/20 05:42 Levothyroxine Sodium 50 Mcg Tablet FEED TUBE 50 mcg DAILY@0630 NIKOLE Administration Meclizine HCl 25 mg 12/15/20 22:13 Meclizine Hcl 25 Mg Tablet FEED TUBE BID PRN Dizziness Neomycin/Polymyxin/Bacitracin 1 applic 12/19/20 18:55 12/24/20 08:55 Neomycin/Polymyxin/Bacitracin Ointment 15 Gm Tube TOPICAL 1 applic QAM NIKOLE Administration Quetiapine Fumarate 12.5 mg 12/15/20 21:00 Quetiapine Fumarate 12.5 Mg Tablet FEED TUBE HS PRN NIGHTLY AGITATION Rivaroxaban 20 mg 12/16/20 17:00 12/24/20 17:18 Rivaroxaban 20 Mg Tablet FEED TUBE 20 mg DAILY@1700 NIKOLE Administration Radiology Results: ITS Impressions Contrast Injection Evaluation 12/15/20 21:08 IMPRESSION: 1. Gastrostomy tube in position. 2. Needle like foreign body. 3. Extensive
[2020-12-25] MEDS: NEOMYCIN/POLYMYXIN/BACITRACIN OINTMENT 15 GM TUBE 1 APPLIC TOPICAL (12:56)
[2020-12-25 14:00] VITALS: BP 119/61; PULSE 72; RESP 16; TEMP 36.6; O2SAT 98
[2020-12-25] MEDS: RIVAROXABAN 20 MG TABLET FEED TUBE (18:30)
[2020-12-25 20:10] VITALS: PULSE 88; RESP 16; O2SAT 94
[2020-12-25 22:00] VITALS: BP 110/78; PULSE 88; RESP 16; TEMP 36.1; O2SAT 94
[2020-12-26] MEDS: dilTIAZem HCL 30 MG TABLET FEED TUBE ×4 (05:16→23:43)
[2020-12-26] MEDS: LEVOTHYROXINE SODIUM 50 MCG TABLET FEED TUBE (05:17)
[2020-12-26 06:00] VITALS: BP 113/64; PULSE 54; RESP 20; TEMP 36.2; O2SAT 96
[2020-12-26 06:53] LABS: Glucose Point of Care 118 (65-105)
[2020-12-26 09:17] VITALS: BP 112/74; PULSE 107; O2SAT 99
[2020-12-26] MEDS: NEOMYCIN/POLYMYXIN/BACITRACIN OINTMENT 15 GM TUBE 1 APPLIC TOPICAL (10:50)
[2020-12-26] MEDS: ATORVASTATIN 40 MG TABLET FEED TUBE (10:50)
--- NOTE | 2020-12-26 13:19 | PCNFU ---
Nutrition Follow-Up Complete: Swallowing difficulties related to dysphagia as evidenced by PEG tube. Goal: Patient to tolerate tube feedings at goal rate Patient is well tolerating feedings at goal rate. No new goal at this time. Pt current nutrition is Jevity 1.5 @ 65mL/hr over a 13 hour period with a Prostat flush once a day providing her with 1,367 calories, 642 ml of water, and 69 grams of protein. She is also receiving 70 ml flushes q4 to meet her fluid needs. Last recorded weight is 50.2 kg. Stable weight upon admission. Bowel Motility: + BM 12/24 Labs Reviewed: POC capillary glucose 118 Meds Noted: Albuterol, Lipitor, Synthroid, Proventil, Seroquel, Xarelto, Antivert Additional Notes: Followed up with patient today. Patient reports beginning to have a little bit of an appetite but has to wait 7 days before the doctor will allow her to eat anything orally. Her stomach is starting to feel better as well. Patient failed bedside swallow evaluation on 12/22. Monitor patients labs, medications, weight, and tube feeding every Friday and Friday.
[2020-12-26 14:00] VITALS: BP 110/59; PULSE 74; RESP 20; TEMP 36.3; O2SAT 100
--- NOTE | 2020-12-26 14:09 | PCNSR ---
On 12/26/20, the student, Evie Pickering, provided care and completed [facility] documentation on this patient. I have reviewed the student's documentation and agree with the findings.
--- NOTE | 2020-12-26 15:14 | WPDNEURORHBP ---
Subjective Date/time seen: 12/26/20 15:14 basilar artery thrombosis with evacuation and stent and residual left-sided neurological deficit has been involved in the physical therapy Review of Systems Review of Systems: All systems reviewed & are unremarkable except as noted in HPI and below Functional Status Ambulation Ability Ambulation Assistive Devices: Cane, David Transfers Ability Ability to Transfer In/Out of Chair: Moderate Assistance X 1 Exam Const: General: cooperative, comfortable and no acute distress Nutritional Appearance: thin Orientation/consciousness: oriented to person and oriented to place Limitations: other limitations ( neuro deficit) Eyes: General: appearance normal, both eyes and all related structures Neck: Neck: full ROM Resp: Effort & Inspection: normal respiratory effort Cardio: Rhythm: regular rhythm GI: Auscultation: normal bowel sounds Neuro: General: oriented to person and oriented to place Cranial nerves: Yes Midline tongue present, Yes Symmetric palate elevation present, Yes Normal hearing present and Yes Ability to bilaterally rotate head present Cognition (Neuro): normal cognition Gait exam (Neuro): Assisted gait required Sensory Exam: Sensory deficit (Neuro) Objective Data Vital Signs Vital Signs: Vital Signs - 24 hr 12/25/20 20:10 12/25/20 22:00 12/26/20 06:00 Temperature 36.1 C L 36.2 C L Pulse Rate 88 88 54 L Respiratory Rate 16 16 20 Blood Pressure 110/78 113/64 Pulse Oximetry 94 94 96 12/26/20 09:17 Temperature Pulse Rate 107 H Respiratory Rate Blood Pressure 112/74 Pulse Oximetry 99 Meds/Results Medications: Active Medications Generic Name Dose Route Start Last Admin Trade Name Freq PRN Reason Stop Dose Admin Acetaminophen 650 mg 12/15/20 23:20 12/22/20 08:20 Acetaminophen Elixir 325 Mg/10.15 Ml Udc FEED TUBE 650 mg QID PRN Administration Pain Rated 1-3 Albuterol 2 puff 12/15/20 22:13 Albuterol Sulfate (*Sp) Aerosol 1 Puff INHALATION Q4-6H PRN Shortness Of Breath Atorvastatin Calcium 40 mg 12/16/20 09:00 12/26/20 10:50 Atorvastatin 40 Mg Tablet FEED TUBE 40 mg DAILY NIKOLE Administration Diltiazem HCl 30 mg 12/16/20 12:05 12/26/20 12:32 Diltiazem Hcl 30 Mg Tablet FEED TUBE 30 mg Q6HR NIKOLE Administration Fluticasone Propionate 2 spray 12/15/20 22:13 Fluticasone Propionate 0.05% Na Spr 16 Gm Btl (*Bkc) NASAL DAILY PRN Congestion Furosemide 20 mg 12/15/20 22:13 Furosemide 20 Mg Tablet FEED TUBE DAILY PRN Edema Levothyroxine Sodium 50 mcg 12/16/20 06:30 12/26/20 05:17 Levothyroxine Sodium 50 Mcg Tablet FEED TUBE 50 mcg DAILY@0630 [facility] Administration Meclizine HCl 25 mg 12/15/20 22:13 Meclizine Hcl 25 Mg Tablet FEED TUBE BID PRN Dizziness Neomycin/Polymyxin/Bacitracin 1 applic 12/19/20 18:55 12/26/20 10:50 Neomycin/Polymyxin/Bacitracin Ointment 15 Gm Tube TOPICAL 1 applic QAM [facility] Administration Quetiapine Fumarate 12.5 mg 12/15/20 21:00 Quetiapine Fumarate 12.5 Mg Tablet FEED TUBE HS PRN NIGHTLY AGITATION Rivaroxaban 20 mg 12/16/20 17:00 12/25/20 18:30 Rivaroxaban 20 Mg Tablet FEED TUBE 20 mg DAILY@1700 NIKOLE Administration Radiology Results: ITS Impressions Contrast Injection Evaluation 12/15/20 21:08 IMPRESSION: 1. Gastrostomy tube in position. 2. Needle like foreign body. 3. Extensive colonic diverticulosis. Modified Barium Swallow 12/22/20 15:41 IMPRESSION: Modified esophagram findings as above. Please refer to the speech therapy report for specific recommendations. Labs Labs: Laboratory Results - last 24 hr 12/26/20 06:29 POC Capillary Glucose 118 H Progress Note: A&P Assessment and Plan (1) Hemorrhoids: Code(s): K64.9 - Unspecified hemorrhoids Status: Acute (2) Mild cognitive impairment: Code(s): G31.84 - Mild cogni
[2020-12-26] MEDS: RIVAROXABAN 20 MG TABLET FEED TUBE (18:09)
[2020-12-26 22:00] VITALS: BP 100/57; PULSE 88; RESP 18; TEMP 36.4; O2SAT 100
[2020-12-27 06:00] VITALS: BP 112/54; PULSE 76; RESP 18; TEMP 36.4; O2SAT 93
[2020-12-27] MEDS: LEVOTHYROXINE SODIUM 50 MCG TABLET FEED TUBE (06:02)
[2020-12-27] MEDS: dilTIAZem HCL 30 MG TABLET FEED TUBE ×3 (06:02→17:31)
[2020-12-27 06:32] LABS: Glucose Point of Care 166 (65-105)
[2020-12-27] MEDS: ATORVASTATIN 40 MG TABLET FEED TUBE (08:57)
[2020-12-27] MEDS: NEOMYCIN/POLYMYXIN/BACITRACIN OINTMENT 15 GM TUBE 1 APPLIC TOPICAL (08:58)
[2020-12-27 14:00] VITALS: BP 114/58; PULSE 94; RESP 16; TEMP 36.6; O2SAT 96
--- NOTE | 2020-12-27 16:39 | WPDNEURORHBP ---
Subjective Date/time seen: 12/27/20 16:39 is status post basilar artery thrombosis with evacuation and stenting and residual neurological deficit has been showing signs of gradual improvement particularly in the mental status though continues to have physical left hemiparesis Review of Systems Review of Systems: All systems reviewed & are unremarkable except as noted in HPI and below Functional Status Ambulation Ability Ability to Ambulate 10 Feet: Moderate Assistance X 1 Ambulation Assistive Devices: Cane, David Transfers Ability Ability to Transfer In/Out of Chair: Moderate Assistance X 1 Exam Const: General: cooperative, comfortable and no acute distress Nutritional Appearance: average body habitus and thin Limitations: other limitations ( neurological) Eyes: General: appearance normal, both eyes and all related structures Neck: Neck: full ROM Resp: Effort & Inspection: normal respiratory effort Auscultation: clear to auscultation bilaterally Cardio: Jugular venous distension: no JVD Rate: regular rate Rhythm: regular rhythm GI: Auscultation: normal bowel sounds Neuro: General: patient oriented x3 Cognition (Neuro): normal cognition Gait exam (Neuro): Assisted gait required Motor exam (neuro): Abnormal motor strength present ( left hemiparesis) Psych: Appearance: grossly normal Objective Data Vital Signs Vital Signs: Vital Signs - 24 hr 12/26/20 22:00 12/27/20 06:00 12/27/20 14:00 Temperature 36.4 C L 36.4 C L 36.6 C Pulse Rate 88 76 94 Respiratory Rate 18 18 16 Blood Pressure 100/57 L 112/54 L 114/58 L Pulse Oximetry 100 93 96 Meds/Results Medications: Active Medications Generic Name Dose Route Start Last Admin Trade Name Freq PRN Reason Stop Dose Admin Acetaminophen 650 mg 12/15/20 23:20 12/22/20 08:20 Acetaminophen Elixir 325 Mg/10.15 Ml Udc FEED TUBE 650 mg QID PRN Administration Pain Rated 1-3 Albuterol 2 puff 12/15/20 22:13 Albuterol Sulfate (*Sp) Aerosol 1 Puff INHALATION Q4-6H PRN Shortness Of Breath Atorvastatin Calcium 40 mg 12/16/20 09:00 12/27/20 08:57 Atorvastatin 40 Mg Tablet FEED TUBE 40 mg DAILY NIKOLE Administration Diltiazem HCl 30 mg 12/16/20 12:05 12/27/20 11:56 Diltiazem Hcl 30 Mg Tablet FEED TUBE 30 mg Q6HR NIKOLE Administration Fluticasone Propionate 2 spray 12/15/20 22:13 Fluticasone Propionate 0.05% Na Spr 16 Gm Btl (*Bkc) NASAL DAILY PRN Congestion Furosemide 20 mg 12/15/20 22:13 Furosemide 20 Mg Tablet FEED TUBE DAILY PRN Edema Levothyroxine Sodium 50 mcg 12/16/20 06:30 12/27/20 06:02 Levothyroxine Sodium 50 Mcg Tablet FEED TUBE 50 mcg DAILY@0630 NIKOLE Administration Meclizine HCl 25 mg 12/15/20 22:13 Meclizine Hcl 25 Mg Tablet FEED TUBE BID PRN Dizziness Neomycin/Polymyxin/Bacitracin 1 applic 12/19/20 18:55 12/27/20 08:58 Neomycin/Polymyxin/Bacitracin Ointment 15 Gm Tube TOPICAL 1 applic QAM NIKOLE Administration Quetiapine Fumarate 12.5 mg 12/15/20 21:00 Quetiapine Fumarate 12.5 Mg Tablet FEED TUBE HS PRN NIGHTLY AGITATION Rivaroxaban 20 mg 12/16/20 17:00 12/26/20 18:09 Rivaroxaban 20 Mg Tablet FEED TUBE 20 mg DAILY@1700 NIKOLE Administration Radiology Results: ITS Impressions Contrast Injection Evaluation 12/15/20 21:08 IMPRESSION: 1. Gastrostomy tube in position. 2. Needle like foreign body. 3. Extensive colonic diverticulosis. Modified Barium Swallow 12/22/20 15:41 IMPRESSION: Modified esophagram findings as above. Please refer to the speech therapy report for specific recommendations. Labs Labs: Laboratory Results - last 24 hr 12/27/20 06:20 POC Capillary Glucose 166 H Progress Note: A&P Assessment and Plan (1) Hemorrhoids: Code(s): K64.9 - Unspecified hemorrhoids Status: Acute (2) Mild cognitive impairment: Code(s): G31.84 - Mild cogniti
[2020-12-27] MEDS: RIVAROXABAN 20 MG TABLET FEED TUBE (17:31)
[2020-12-27 22:00] VITALS: BP 107/56; PULSE 91; RESP 16; TEMP 36.4; O2SAT 95
[2020-12-28] MEDS: dilTIAZem HCL 30 MG TABLET FEED TUBE ×5 (00:22→23:30)
[2020-12-28] MEDS: LEVOTHYROXINE SODIUM 50 MCG TABLET FEED TUBE (05:59)
[2020-12-28 06:00] VITALS: BP 115/75; PULSE 88; RESP 20; TEMP 36.2; O2SAT 96
[2020-12-28 06:41] LABS: Glucose Point of Care 97 (65-105)
[2020-12-28] MEDS: ATORVASTATIN 40 MG TABLET FEED TUBE (09:04)
[2020-12-28] MEDS: NEOMYCIN/POLYMYXIN/BACITRACIN OINTMENT 15 GM TUBE 1 APPLIC TOPICAL (09:05)
[2020-12-28 14:00] VITALS: BP 144/69; PULSE 74; RESP 18; TEMP 36.9; O2SAT 97
[2020-12-28] MEDS: RIVAROXABAN 20 MG TABLET FEED TUBE (17:22)
[2020-12-28 20:28] VITALS: BP 106/59; PULSE 75; RESP 22; TEMP 36.3; O2SAT 97
[2020-12-28 23:30] VITALS: BP 113/76; PULSE 85
[2020-12-29 05:07] VITALS: BP 102/67; PULSE 86; RESP 20; TEMP 36.4; O2SAT 94
[2020-12-29 05:57] VITALS: BP 110/70; PULSE 92
[2020-12-29] MEDS: dilTIAZem HCL 30 MG TABLET FEED TUBE ×4 (05:59→23:40)
[2020-12-29] MEDS: LEVOTHYROXINE SODIUM 50 MCG TABLET FEED TUBE (05:59)
[2020-12-29 07:02] LABS: Glucose Point of Care 107 (65-105)
--- NOTE | 2020-12-29 08:25 | PCPTNOTE ---
Sarah Ghosh was evaluated for a slide board on 12/29/2020 by this physical therapist sales operations assistant. The slide board will resolve patient's mobility limitations and will be used for ADL's within the home. The patient can safely use the slide board. ?The slide board will resolve the patient?s mobility deficits, including impaired balance, decreased strength and endurance.
--- NOTE | 2020-12-29 08:26 | PCPTNOTE ---
Shelbi A. MIRI Theodore completed an inpatient rehab wheelchair evaluation on Sarah Ghosh on 12/29/2020. The patient is unable to safely and independently ambulate household distances due to their current impairments. Their diagnosis is CVA and their impairments include decreased strength, decreased endurance, decreased range of motion, decreased balance and lower extremity weakness. Sarah's weight bearing status is weight-bearing as tolerated on the bilateral lower legs. The patient demonstrates significant functional mobility limitations that impair their ability to participate in mobility-related activities of daily living (MRADLs), including toileting, feeding, dressing, grooming, and bathing in the customary locations in the home. These limitations cannot be sufficiently resolved by the use of an appropriately fitted cane or walker. It is recommended that the patient utilize a wheelchair for functional mobility within the home in order to facilitate optimal safety, independence and participation in all MRADL's and adequately access their home environment on a regular basis. The patient's home provides adequate access between rooms, maneuvering space, and surfaces to accommodate the recommended wheelchair. The use of a wheelchair for functional mobility is strongly recommended and the patient is receptive to using the wheelchair. The use of this wheelchair will significantly improve the patient's ability to participate in MRADLS and the patient will use it on a regular basis in the home. This will facilitate optimal safety, independence, and participation. The patient has demonstrated sufficient physical and mental capabilities needed to safely propel a manual wheelchair that is provided in the home during a typical day. Recommended Wheelchair Frame: standard Recommended Wheelchair Size: 16x18 Recommended Wheelchair Cushion: standard Wheelchair Leg Recommendations: swing away leg rests -Anti-tippers are recommended due to patient demonstrating increased risk for falls. They would benefit from anti-tippers with added safety and stabilization. - A LEFT arm trough is recommended because the patient has hemiplegia. - Swing away arm rest are recommended to promote independence of slide board transfer. - A left break nca certified concierge is recommended to facilitate independence of wheelchair parts management. Shelbi Theodore SHIPFITTER APPRENTICE 12-29-2020 Evaluating Therapist Date I agree with and certify that the above recommendation is medically necessary. Referring Physician Date I agree with and certify that the above recommendation is medically necessary. Referring Physician Date
[2020-12-29] MEDS: ATORVASTATIN 40 MG TABLET FEED TUBE (09:24)
[2020-12-29] MEDS: NEOMYCIN/POLYMYXIN/BACITRACIN OINTMENT 15 GM TUBE 1 APPLIC TOPICAL (09:24)
--- NOTE | 2020-12-29 12:40 | PCNFU ---
Nutrition Follow-Up Complete: Swallowing difficulties related to dysphagia as evidenced by PEG tube. Goal: Patient to tolerate tube feedings at goal rate Patient is meeting current goal. No new goal at this time. Pt current nutrition is Jevity 1.5 @ 65mls/hour for 12 hours with a prostat flush once a day. Last recorded weight is 51.1 kg. Bowel Motility: + BM 12/27 Labs Reviewed: No new labs. Meds Noted: Albuterol, Lipitor, Synthroid, Seroquel, Proventil, Xarelto, Antivert Additional Notes: Spoke with patient. Patient stated she was doing well just ready to go home. She is tolerating her current tube feeding well with no issues. Jevity 1.5 @ 65 with prostat flush is providing 1367 calories, 69 grams of protein, and 642 ml of water with 70 ml flushes q4 hours to meet fluid needs. Monitor patients labs, medications, weight, and tube feeding every Friday and Friday.
--- NOTE | 2020-12-29 12:57 | PCNSR ---
On 12/29/20, the student,Evie Pickering, provided care and completed [facility] documentation on this patient. I have reviewed the student's documentation and agree with the findings.
--- NOTE | 2020-12-29 13:49 | WPDNEURORHBP ---
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 has been receiving all her medication as such and also has remained stable, vital signs are stable, no change in the medication is still receiving rivaroxaban 20 mg daily, has no new lab Review of Systems Review of Systems: All systems reviewed & are unremarkable except as noted in HPI and below Functional Status Ambulation Ability Ability to Ambulate 10 Feet: Moderate Assistance X 1 Ambulation Assistive Devices: Cane, David Transfers Ability Ability to Transfer In/Out of Chair: Moderate Assistance X 1 Exam Const: General: cooperative, healthy appearing, comfortable, no acute distress, alert and awake Nutritional Appearance: average body habitus Limitations: altered mental status and physical limitations HENMT: Head: normal to inspection and normocephalic Ears: hearing grossly normal bilaterally General nose exam: Normal external nose present and No nasal discharge present Face and sinus: normal facial exam Mouth: Yes Normal oral and palatal mucosa present Eyes: General: appearance normal, both eyes and all related structures Visual Contreras: normal visual contreras by confrontation Alignment and Position: alignment normal Periorbital: periorbital findings normal Eyelids: eyelids normal Conjunctivae: conjunctivae normal Sclera: sclerae normal Cornea: corneas normal Pupils: Equal, round and reactive pupils present EOM: EOMs intact bilaterally Neck: Neck: full ROM Resp: Effort & Inspection: able to speak in complete sentences Auscultation: clear to auscultation bilaterally Cardio: Jugular venous distension: no JVD Rate: regular rate Rhythm: regular rhythm GI: Auscultation: normal bowel sounds Neuro: General: oriented to person and oriented to place Cranial nerves: Yes CN's II-XII intact bilaterally Speech: normal speech Motor exam (neuro): Abnormal motor strength present ( left hemiparesis) Sensory Exam: Sensory deficit (Neuro) Deep tendon reflexes (DTR's): Right triceps reflex intensity grade: 1+, Left triceps reflex intensity grade: 2+, Rt Biceps (C5, C6): 1+, Left biceps reflex intensity grade: 2+, Right brachioradialis reflex intensity grade: 1+, Left brachioradialis reflex intensity grade: 2+, Right patellar reflex intensity grade: 1+, Left patellar reflex intensity grade: 2+, Right ankle reflex intensity grade: 1+ and Left ankle reflex intensity grade: 2+ Plantar Reflex Responses: downgoing: right and upgoing (positive Babinski): left Coordination: [id number] test normal ( right side) Extrem: General: full ROM Psych: Mental Status: other ( more confused today) Speech and movement: Clear speech present Affect: normal affect Attitude: cooperative Thought process: Flight of ideas present Thought content: Yes Normal thought content present Insight: Fair insight present (Psych) Judgement: Fair judgement present (Psych) Objective Data Vital Signs Vital Signs: Vital Signs - 24 hr 12/28/20 14:00 12/28/20 20:28 12/28/20 23:30 Temperature 36.9 C 36.3 C L Pulse Rate 74 75 85 Respiratory Rate 18 22 H Blood Pressure 144/69 H 106/59 L 113/76 Pulse Oximetry 97 97 12/29/20 05:07 12/29/20 05:57 Temperature 36.4 C L Pulse Rate 86 92 Respiratory Rate 20 Blood Pressure 102/67 110/70 Pulse Oximetry 94 Intake/Output Intake/Output: Intake & Output 12/26/20 12/27/20 12/28/20 12/29/20 23:59 23:59 23:59 23:59 Intake Total 976 Balance 976 Meds/Results Medications: Active Medications Generic Name Dose Route Start Last Admin Trade Name Freq PRN Reason Stop Dose Admin Acetaminophen 650 mg 12/15/20 23:20 12/22/20 08:20 Acetaminophen Elixir 325 Mg/10.15 Ml Udc FEED TUBE 650 mg QID PRN Administration Pain Rated 1-3 Albuterol 2 puff 12/15/20 22:13 Albuterol Sulfate (*Sp) Aerosol 1 Puff INHALATION Q4-
[2020-12-29 14:00] VITALS: BP 123/66; PULSE 82; RESP 20; TEMP 36.8; O2SAT 95
[2020-12-29] MEDS: RIVAROXABAN 20 MG TABLET FEED TUBE (18:01)
[2020-12-29 20:00] VITALS: PULSE 88; RESP 16; O2SAT 93
[2020-12-29 22:00] VITALS: BP 102/63; PULSE 88; RESP 16; TEMP 37; O2SAT 93
[2020-12-30 05:35] LABS: Basophils Absolute Auto 0.1 K/mm3 (0.0-0.1); Basophils Percent Auto 0.8 % (0.2-1.2); Eosinophils Absolute Auto 0.1 K/mm3 (0-0.3); Hematocrit 41.6 % (37.0-47.0); Hemoglobin 13.3 g/dL (12.0-15.0); Immature Granulocyte Absolute 0.02 K/mm3 (0.00-0.031); Immature Granulocyte Percent A 0.3 % (0-0.5); Lymphocytes Absolute Auto 0.73 K/mm3 (0.9-3.2); Lymphocytes Percent Auto 11.1 % (18.3-44.2); Mean Corpuscular Volume 90.6 fl (80-100); Mean Platelet Volume 10.5 fl (7.4-10.4); Monocytes Percent Auto 15.2 % (2.6-8.5); Neutrophils Absolute Auto 4.7 K/mm3 (1.3-6.7); Neutrophils Percent Auto 70.6 % (45.5-73.1); Platelet Count Result 345 k/mm3 (150-375); Red Blood Count 4.59 M/mm3 (4.2-5.4); Red Cell Distribution Width 12.9 % (11.5-14.5); White Blood Count 6.6 K/mm3 (4.5-10.0)
[2020-12-30 05:46] LABS: Anion Gap 4 mmol/L (8-16); Blood Urea Nitrogen 26 mg/dL (7-17); Calcium 8.9 mg/dL (8.4-10.2); Carbon Dioxide 33 mmol/L (22-30); Chloride 103 mmol/L (98-107); Estimated CRCL calculation 34 ml/min; Estimated Glomerular Filt Rate 60; Glucose 106 mg/dL (65-105); Potassium 3.7 mmol/L (3.4-5.0); Sodium 140 mmol/L (137-145)
[2020-12-30 06:00] VITALS: BP 113/74; PULSE 53; RESP 18; TEMP 36.9; O2SAT 98
[2020-12-30] MEDS: LEVOTHYROXINE SODIUM 50 MCG TABLET FEED TUBE (06:30)
[2020-12-30] MEDS: dilTIAZem HCL 30 MG TABLET FEED TUBE ×4 (06:30→23:23)
[2020-12-30 07:04] LABS: Glucose Point of Care 131 (65-105)
[2020-12-30] MEDS: ATORVASTATIN 40 MG TABLET FEED TUBE (09:20)
[2020-12-30] MEDS: NEOMYCIN/POLYMYXIN/BACITRACIN OINTMENT 15 GM TUBE 1 APPLIC TOPICAL (09:20)
[2020-12-30 14:00] VITALS: BP 118/74; PULSE 90; RESP 16; TEMP 36.6; O2SAT 98
[2020-12-30] MEDS: RIVAROXABAN 20 MG TABLET FEED TUBE (18:14)
[2020-12-30 20:30] VITALS: PULSE 74; RESP 12; O2SAT 96
[2020-12-30 22:00] VITALS: BP 110/67; PULSE 74; RESP 12; TEMP 36.8; O2SAT 96
[2020-12-31] MEDS: LEVOTHYROXINE SODIUM 50 MCG TABLET FEED TUBE (05:32)
[2020-12-31] MEDS: dilTIAZem HCL 30 MG TABLET FEED TUBE ×3 (05:32→17:52)
[2020-12-31 05:41] LABS: Glucose Point of Care 127 (65-105)
[2020-12-31 06:00] VITALS: BP 106/50; PULSE 96; RESP 20; TEMP 36.6; O2SAT 98
[2020-12-31] MEDS: ATORVASTATIN 40 MG TABLET FEED TUBE (08:50)
[2020-12-31] MEDS: NEOMYCIN/POLYMYXIN/BACITRACIN OINTMENT 15 GM TUBE 1 APPLIC TOPICAL (08:53)
--- NOTE | 2020-12-31 13:26 | WPDNEURORHBP ---
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 has undergone cannulization and also has been involved in a physical therapy on a regular basis, remains afebrile with blood pressure 106/50 pulse rate 96 respiration 20 pulse ox 98 on the room air, lab revealed normal CBC, normal basic metabolic panel except fluctuating blood sugar Review of Systems Review of Systems: All systems reviewed & are unremarkable except as noted in HPI and below Functional Status Ambulation Ability Ability to Ambulate 10 Feet: Moderate Assistance X 1 Ambulation Assistive Devices: Cane, David Transfers Ability Ability to Transfer In/Out of Chair: Moderate Assistance X 1 Exam Const: General: cooperative, comfortable and no acute distress Nutritional Appearance: average body habitus and thin Orientation/consciousness: oriented to person, oriented to place and patient oriented x3 Limitations: other limitations ( limitation secondary to stroke) HENMT: Head: normocephalic Ears: hearing grossly normal bilaterally General nose exam: Normal external nose present and No nasal discharge present Face and sinus: normal facial exam Mouth: Yes Normal oral and palatal mucosa present Eyes: General: appearance normal, both eyes and all related structures Neck: Neck: full ROM Resp: Effort & Inspection: normal respiratory effort Auscultation: clear to auscultation bilaterally Cardio: Rate: regular rate Rhythm: regular rhythm GI: Auscultation: normal bowel sounds Skin: General skin exam: no rashes or lesions noted Neuro: General: oriented to person and oriented to place Cranial nerves: Yes CN's II-XII intact bilaterally Cognition (Neuro): normal cognition Speech: normal speech Motor exam (neuro): Abnormal motor strength present ( left hemiparesis) Sensory Exam: Sensory deficit (Neuro) Deep tendon reflexes (DTR's): Right triceps reflex intensity grade: 1+, Left triceps reflex intensity grade: 2+, Rt Biceps (C5, C6): 1+, Left biceps reflex intensity grade: 2+, Right brachioradialis reflex intensity grade: 1+, Left brachioradialis reflex intensity grade: 2+, Right patellar reflex intensity grade: 1+, Left patellar reflex intensity grade: 2+, Right ankle reflex intensity grade: 1+ and Left ankle reflex intensity grade: 2+ Plantar Reflex Responses: downgoing: right and upgoing (positive Babinski): left Coordination: [id number] test normal ( right side) Psych: Appearance: grossly normal Objective Data Vital Signs Vital Signs: Vital Signs - 24 hr 12/30/20 14:00 12/30/20 20:30 12/30/20 22:00 Temperature 36.6 C 36.8 C Pulse Rate 90 74 74 Respiratory Rate 16 12 12 Blood Pressure 118/74 110/67 Pulse Oximetry 98 96 96 12/31/20 06:00 Temperature 36.6 C Pulse Rate 96 Respiratory Rate 20 Blood Pressure 106/50 L Pulse Oximetry 98 Intake/Output Intake/Output: Intake & Output 12/28/20 12/29/20 12/30/20 12/31/20 23:59 23:59 23:59 23:59 Intake Total 976 1130 796 Balance 976 1130 796 Meds/Results Medications: Active Medications Generic Name Dose Route Start Last Admin Trade Name Freq PRN Reason Stop Dose Admin Acetaminophen 650 mg 12/15/20 23:20 12/22/20 08:20 Acetaminophen Elixir 325 Mg/10.15 Ml Udc FEED TUBE 650 mg QID PRN Administration Pain Rated 1-3 Albuterol 2 puff 12/15/20 22:13 Albuterol Sulfate (*Sp) Aerosol 1 Puff INHALATION Q4-6H PRN Shortness Of Breath Atorvastatin Calcium 40 mg 12/16/20 09:00 12/31/20 08:50 Atorvastatin 40 Mg Tablet FEED TUBE 40 mg DAILY NIKOLE Administration Diltiazem HCl 30 mg 12/16/20 12:05 12/31/20 12:59 Diltiazem Hcl 30 Mg Tablet FEED TUBE 30 mg Q6HR NIKOLE Administration Fluticasone Propionate 2 spray 12/15/20 22:13 Fluticasone Propionate 0.05% Na Spr 16 Gm Btl (*Bkc) NASAL DAILY PRN Congestion Furosemide 20 mg 12/15/20 22:13 Furosemide 20 Mg Tablet FEED TUBE ARIANA
[2020-12-31 14:00] VITALS: BP 119/78; PULSE 85; RESP 20; TEMP 36.9; O2SAT 100
[2020-12-31] MEDS: RIVAROXABAN 20 MG TABLET FEED TUBE (17:52)
[2020-12-31 20:35] VITALS: PULSE 85; RESP 18; O2SAT 100
[2020-12-31 21:48] VITALS: BP 125/66; PULSE 85; RESP 18; TEMP 36.7; O2SAT 100
[2021-01-01] MEDS: dilTIAZem HCL 30 MG TABLET FEED TUBE ×4 (00:18→17:11)
[2021-01-01 06:00] VITALS: BP 110/70; PULSE 87; RESP 18; TEMP 36.3; O2SAT 97
[2021-01-01] MEDS: LEVOTHYROXINE SODIUM 50 MCG TABLET FEED TUBE (06:03)
[2021-01-01 06:31] LABS: Glucose Point of Care 138 (65-105)
[2021-01-01] MEDS: ATORVASTATIN 40 MG TABLET FEED TUBE (08:35)
[2021-01-01] MEDS: NEOMYCIN/POLYMYXIN/BACITRACIN OINTMENT 15 GM TUBE 1 APPLIC TOPICAL (08:35)
--- NOTE | 2021-01-01 11:21 | WPDNEURORHBP ---
Subjective Date/time seen: 01/01/21 11:21 patient was seen during physical therapy. Patient denies any physical complaints Review of Systems Review of Systems: Narrative: please see past medical history Functional Status Ambulation Ability Ability to Ambulate 10 Feet: Moderate Assistance X 1 Ambulation Assistive Devices: Cane, David Transfers Ability Ability to Transfer In/Out of Chair: Moderate Assistance X 1 Exam Const: General: cooperative Nutritional Appearance: cachectic and thin Orientation/consciousness: oriented to person and oriented to place HENMT: Head: normocephalic Ears: hearing grossly normal bilaterally General nose exam: Normal external nose present Mouth: Yes Normal oral and palatal mucosa present Eyes: General: appearance normal, both eyes and all related structures Neck: Neck: normal visual inspection Resp: Effort & Inspection: normal respiratory effort and able to speak in complete sentences Cardio: Rhythm: regular rhythm GI: Other: G-tube noted Objective Data Vital Signs Vital Signs: Vital Signs - 24 hr 12/31/20 14:00 12/31/20 20:35 12/31/20 21:48 Temperature 36.9 C 36.7 C Pulse Rate 85 85 85 Respiratory Rate 20 18 18 Blood Pressure 119/78 125/66 Pulse Oximetry 100 100 100 01/01/21 06:00 Temperature 36.3 C L Pulse Rate 87 Respiratory Rate 18 Blood Pressure 110/70 Pulse Oximetry 97 Intake/Output Intake/Output: Intake & Output 12/29/20 12/30/20 12/31/20 01/01/21 23:59 23:59 23:59 23:59 Intake Total 976 1130 796 Balance 976 1130 796 Meds/Results Medications: Active Medications Generic Name Dose Route Start Last Admin Trade Name Freq PRN Reason Stop Dose Admin Acetaminophen 650 mg 12/15/20 23:20 12/22/20 08:20 Acetaminophen Elixir 325 Mg/10.15 Ml Udc FEED TUBE 650 mg QID PRN Administration Pain Rated 1-3 Albuterol 2 puff 12/15/20 22:13 Albuterol Sulfate (*Sp) Aerosol 1 Puff INHALATION Q4-6H PRN Shortness Of Breath Atorvastatin Calcium 40 mg 12/16/20 09:00 01/01/21 08:35 Atorvastatin 40 Mg Tablet FEED TUBE 40 mg DAILY NIKOLE Administration Diltiazem HCl 30 mg 12/16/20 12:05 01/01/21 06:03 Diltiazem Hcl 30 Mg Tablet FEED TUBE 30 mg Q6HR NIKOLE Administration Fluticasone Propionate 2 spray 12/15/20 22:13 Fluticasone Propionate 0.05% Na Spr 16 Gm Btl (*Bkc) NASAL DAILY PRN Congestion Furosemide 20 mg 12/15/20 22:13 Furosemide 20 Mg Tablet FEED TUBE DAILY PRN Edema Levothyroxine Sodium 50 mcg 12/16/20 06:30 01/01/21 06:03 Levothyroxine Sodium 50 Mcg Tablet FEED TUBE 50 mcg DAILY@0630 NIKOLE Administration Meclizine HCl 25 mg 12/15/20 22:13 Meclizine Hcl 25 Mg Tablet FEED TUBE BID PRN Dizziness Neomycin/Polymyxin/Bacitracin 1 applic 12/19/20 18:55 01/01/21 08:35 Neomycin/Polymyxin/Bacitracin Ointment 15 Gm Tube TOPICAL 1 applic QAM NIKOLE Administration Quetiapine Fumarate 12.5 mg 12/15/20 21:00 Quetiapine Fumarate 12.5 Mg Tablet FEED TUBE HS PRN NIGHTLY AGITATION Rivaroxaban 20 mg 12/16/20 17:00 12/31/20 17:52 Rivaroxaban 20 Mg Tablet FEED TUBE 20 mg DAILY@1700 NIKOLE Administration Radiology Results: ITS Impressions Contrast Injection Evaluation 12/15/20 21:08 IMPRESSION: 1. Gastrostomy tube in position. 2. Needle like foreign body. 3. Extensive colonic diverticulosis. Modified Barium Swallow 12/22/20 15:41 IMPRESSION: Modified esophagram findings as above. Please refer to the speech therapy report for specific recommendations. 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
[2021-01-01 14:00] VITALS: BP 124/69; PULSE 59; RESP 18; TEMP 36.8; O2SAT 95
[2021-01-01] MEDS: RIVAROXABAN 20 MG TABLET FEED TUBE (17:11)
[2021-01-01 22:00] VITALS: BP 97/63; PULSE 62; RESP 18; TEMP 36.4; O2SAT 98
[2021-01-02] MEDS: dilTIAZem HCL 30 MG TABLET FEED TUBE ×4 (00:39→17:15)
[2021-01-02 06:00] VITALS: BP 102/72; PULSE 66; RESP 16; TEMP 36.6; O2SAT 94
[2021-01-02] MEDS: LEVOTHYROXINE SODIUM 50 MCG TABLET FEED TUBE (06:12)
[2021-01-02 06:42] LABS: Glucose Point of Care 128 (65-105)
[2021-01-02] MEDS: NEOMYCIN/POLYMYXIN/BACITRACIN OINTMENT 15 GM TUBE 1 APPLIC TOPICAL (09:42)
[2021-01-02] MEDS: ATORVASTATIN 40 MG TABLET FEED TUBE (09:42)
--- NOTE | 2021-01-02 12:04 | PCNFU ---
Nutrition Follow-Up Complete: Swallowing difficulties related to dysphagia as evidenced by PEG tube. Goal: Patient to tolerate tube feedings at goal rate Pt current nutrition is Jevity 1.5 at 65 ml/hour with a prostat flush once a day over 13 hours a day providing patient with 1,367 calories, 642 ml of water, and 69 grams of protein. Additional 70 ml water flushes q four hours in order to meet estimated fluid needs. Last recorded weight is 52.2 kg. Stable weight upon admission. Bowel Motility: + BM 12/31 Labs Reviewed: No new labs. Meds Noted: Albuterol, Lipitor, Synthroid, Seroquel, Proventil, Xarelto, Antivert Additional Notes: Spoke with patient nurse. RN reported patient is tolerating tube feeding well. Patient has no nausea or diarrhea and is not constipated. Monitor patients labs, medications, weight, and tube feeding every Friday and Friday.
--- NOTE | 2021-01-02 12:17 | PCNSR ---
On 01/02/21, the student, Evie Pickering, provided care and completed [facility] documentation on this patient. I have reviewed the student's documentation and agree with the findings.
--- NOTE | 2021-01-02 13:09 | WPDNEURORHBP ---
Subjective Date/time seen: 01/02/21 13:09 Patient voices no complaints. Patient was emotional during team conference. Patient stated that she her goal was to return home. She is aware that currently she is unable to return home until more motor recovery is noted. Review of Systems Review of Systems: All systems reviewed & are unremarkable except as noted in HPI and below Functional Status Ambulation Ability Ability to Ambulate 10 Feet: Moderate Assistance X 1 Ambulation Assistive Devices: Cane, David Transfers Ability Ability to Transfer In/Out of Chair: Moderate Assistance X 1 Exam Narrative: Exam Narrative: Mild facial asymmetry is noted extraocular muscles are intact speech is clear, the patient remains NPO except for trials by speech. G tube is noted abdomen is soft positive bowel sounds right upper right lower extremity strength are 4-5 left upper extremity is essentially flaccid, trace movement is noted at the shoulder, left lower extremity strength is 3+ to 4-. Function: Patient is moderate assistance with standing activities performing upper extremity ADLs lower extremity ADLs are mod to max assistance. Toilet and toilet transfers require 50% assistance. Transfers are with standing pivot transfers as well as sliding boards. Patient ambulates with a david walker with mod to max assistance Voices stronger patient is able to answer more accurately questions patient does remain confused and needs assistance with orientation. Swallowing is also improved and honey thickened liquids will be trialed patient also demonstrates a cough during swallowing. Objective Data Vital Signs Vital Signs: Vital Signs - 24 hr 01/01/21 14:00 01/01/21 22:00 01/02/21 06:00 Temperature 36.8 C 36.4 C 36.6 C Pulse Rate 59 L 62 66 Respiratory Rate 18 18 16 Blood Pressure 124/69 97/63 L 102/72 Pulse Oximetry 95 98 94 Intake/Output Intake/Output: Intake & Output 12/30/20 12/31/20 01/01/21 01/02/21 23:59 23:59 23:59 23:59 Intake Total 1130 796 Balance 1130 796 Meds/Results Medications: Active Medications Generic Name Dose Route Start Last Admin Trade Name Freq PRN Reason Stop Dose Admin Acetaminophen 650 mg 12/15/20 23:20 12/22/20 08:20 Acetaminophen Elixir 325 Mg/10.15 Ml Udc FEED TUBE 650 mg QID PRN Administration Pain Rated 1-3 Albuterol 2 puff 12/15/20 22:13 Albuterol Sulfate (*Sp) Aerosol 1 Puff INHALATION Q4-6H PRN Shortness Of Breath Atorvastatin Calcium 40 mg 12/16/20 09:00 01/02/21 09:42 Atorvastatin 40 Mg Tablet FEED TUBE 40 mg DAILY NIKOLE Administration Diltiazem HCl 30 mg 12/16/20 12:05 01/02/21 12:47 Diltiazem Hcl 30 Mg Tablet FEED TUBE 30 mg Q6HR NIKOLE Administration Fluticasone Propionate 2 spray 12/15/20 22:13 Fluticasone Propionate 0.05% Na Spr 16 Gm Btl (*Bkc) NASAL DAILY PRN Congestion Furosemide 20 mg 12/15/20 22:13 Furosemide 20 Mg Tablet FEED TUBE DAILY PRN Edema Levothyroxine Sodium 50 mcg 12/16/20 06:30 01/02/21 06:12 Levothyroxine Sodium 50 Mcg Tablet FEED TUBE 50 mcg DAILY@0630 [facility] Administration Meclizine HCl 25 mg 12/15/20 22:13 Meclizine Hcl 25 Mg Tablet FEED TUBE BID PRN Dizziness Neomycin/Polymyxin/Bacitracin 1 applic 12/19/20 18:55 01/02/21 09:42 Neomycin/Polymyxin/Bacitracin Ointment 15 Gm Tube TOPICAL 1 applic QAM NIKOLE Administration Quetiapine Fumarate 12.5 mg 12/15/20 21:00 Quetiapine Fumarate 12.5 Mg Tablet FEED TUBE HS PRN NIGHTLY AGITATION Rivaroxaban 20 mg 12/16/20 17:00 01/01/21 17:11 Rivaroxaban 20 Mg Tablet FEED TUBE 20 mg DAILY@1700 [facility] Administration Radiology Results: ITS Impressions Contrast Injection Evaluation 12/15/20 21:08 IMPRESSION: 1. Gastrostomy tube in position. 2. Needle like foreign body. 3. Extensive colonic diverticulosis. Modified Barium Swallow 01/01/21 14:17
[2021-01-02 14:00] VITALS: BP 113/75; PULSE 64; RESP 18; TEMP 35.9; O2SAT 95
[2021-01-02] MEDS: RIVAROXABAN 20 MG TABLET FEED TUBE (17:16)
[2021-01-02 20:33] VITALS: BP 109/66; PULSE 79; RESP 18; TEMP 36.2; O2SAT 93
[2021-01-03] MEDS: dilTIAZem HCL 30 MG TABLET FEED TUBE ×6 (00:27→23:45)
[2021-01-03 01:48] LABS: SARS-CoV-2 RNA PCR Negative
[2021-01-03] MEDS: LEVOTHYROXINE SODIUM 50 MCG TABLET FEED TUBE (05:49)
[2021-01-03 06:00] VITALS: BP 108/60; PULSE 82; RESP 18; TEMP 36.7; O2SAT 97
[2021-01-03 06:11] LABS: Glucose Point of Care 129 (65-105)
[2021-01-03] MEDS: NEOMYCIN/POLYMYXIN/BACITRACIN OINTMENT 15 GM TUBE 1 APPLIC TOPICAL (09:49)
[2021-01-03] MEDS: ATORVASTATIN 40 MG TABLET FEED TUBE (09:49)
[2021-01-03 14:00] VITALS: BP 111/70; PULSE 64; RESP 20; TEMP 36.2; O2SAT 100
--- NOTE | 2021-01-03 15:47 | WPDNEURORHBP ---
Subjective Date/time seen: 01/03/21 15:47 Patient tearful when discussing discharge Review of Systems Review of Systems: All systems reviewed & are unremarkable except as noted in HPI and below Functional Status Ambulation Ability Ability to Ambulate 10 Feet: Moderate Assistance X 1 Ambulation Assistive Devices: Cane, David Transfers Ability Ability to Transfer In/Out of Chair: Moderate Assistance X 1 Exam Const: Orientation/consciousness: oriented to person and oriented to place HENMT: Head: normocephalic Other: facial droop Resp: Effort & Inspection: normal respiratory effort Cardio: Rate: regular rate Rhythm: regular rhythm Neuro: General: oriented to person and oriented to place Other: left hemiplegia, LUE in sling, flaccid Objective Data Vital Signs Vital Signs: Vital Signs - 24 hr 01/02/21 20:33 01/03/21 06:00 01/03/21 14:00 Temperature 36.2 C L 36.7 C 36.2 C L Pulse Rate 79 82 64 Respiratory Rate 18 18 20 Blood Pressure 109/66 108/60 111/70 Pulse Oximetry 93 97 100 Intake/Output Intake/Output: Intake & Output 12/31/20 01/01/21 01/02/21 01/03/21 23:59 23:59 23:59 23:59 Intake Total 796 Output Total 350 Balance 796 -350 Meds/Results Medications: Active Medications Generic Name Dose Route Start Last Admin Trade Name Freq PRN Reason Stop Dose Admin Acetaminophen 650 mg 12/15/20 23:20 12/22/20 08:20 Acetaminophen Elixir 325 Mg/10.15 Ml Udc FEED TUBE 650 mg QID PRN Administration Pain Rated 1-3 Albuterol 2 puff 12/15/20 22:13 Albuterol Sulfate (*Sp) Aerosol 1 Puff INHALATION Q4-6H PRN Shortness Of Breath Atorvastatin Calcium 40 mg 12/16/20 09:00 01/03/21 09:49 Atorvastatin 40 Mg Tablet FEED TUBE 40 mg DAILY NIKOLE Administration Diltiazem HCl 30 mg 12/16/20 12:05 01/03/21 12:12 Diltiazem Hcl 30 Mg Tablet FEED TUBE 30 mg Q6HR NIKOLE Administration Fluticasone Propionate 2 spray 12/15/20 22:13 Fluticasone Propionate 0.05% Na Spr 16 Gm Btl (*Bkc) NASAL DAILY PRN Congestion Furosemide 20 mg 12/15/20 22:13 Furosemide 20 Mg Tablet FEED TUBE DAILY PRN Edema Levothyroxine Sodium 50 mcg 12/16/20 06:30 01/03/21 05:49 Levothyroxine Sodium 50 Mcg Tablet FEED TUBE 50 mcg DAILY@0630 NIKOLE Administration Meclizine HCl 25 mg 12/15/20 22:13 Meclizine Hcl 25 Mg Tablet FEED TUBE BID PRN Dizziness Neomycin/Polymyxin/Bacitracin 1 applic 12/19/20 18:55 01/03/21 09:49 Neomycin/Polymyxin/Bacitracin Ointment 15 Gm Tube TOPICAL 1 applic QAM NIKOLE Administration Quetiapine Fumarate 12.5 mg 12/15/20 21:00 Quetiapine Fumarate 12.5 Mg Tablet FEED TUBE HS PRN NIGHTLY AGITATION Rivaroxaban 20 mg 12/16/20 17:00 01/02/21 17:16 Rivaroxaban 20 Mg Tablet FEED TUBE 20 mg DAILY@1700 NIKOLE Administration Radiology Results: ITS Impressions Contrast Injection Evaluation 12/15/20 21:08 IMPRESSION: 1. Gastrostomy tube in position. 2. Needle like foreign body. 3. Extensive colonic diverticulosis. Modified Barium Swallow 01/01/21 14:17 IMPRESSION: 1. Laryngeal penetration with multiple consistencies. No aspiration. 2. Please refer to the speech therapy report for recommendations. 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
[2021-01-03] MEDS: RIVAROXABAN 20 MG TABLET FEED TUBE (17:11)
[2021-01-03 20:00] VITALS: PULSE 82; RESP 16; O2SAT 94
[2021-01-03 21:35] VITALS: BP 102/70; PULSE 82; RESP 16; TEMP 36.4; O2SAT 94
[2021-01-04] MEDS: LEVOTHYROXINE SODIUM 50 MCG TABLET FEED TUBE (05:11)
[2021-01-04 06:00] VITALS: BP 117/67; PULSE 79; RESP 18; TEMP 36.4; O2SAT 96
[2021-01-04 06:59] LABS: Glucose Point of Care 126 (65-105)
[2021-01-04 08:00] VITALS: PULSE 79; RESP 18; O2SAT 96
[2021-01-04] MEDS: ATORVASTATIN 40 MG TABLET FEED TUBE (08:51)
[2021-01-04] MEDS: NEOMYCIN/POLYMYXIN/BACITRACIN OINTMENT 15 GM TUBE 1 APPLIC TOPICAL (08:51)
[2021-01-04] MEDS: dilTIAZem HCL 30 MG TABLET FEED TUBE ×3 (12:13→23:54)
[2021-01-04 14:00] VITALS: BP 116/66; PULSE 76; RESP 18; TEMP 36.3; O2SAT 97
--- NOTE | 2021-01-04 14:18 | WPDNEURORHBP ---
Subjective Date/time seen: 01/04/21 14:18 patient was seen earlier this morning resting comfortably in bed. Patient is aware she will be transitioned to a intermediate facility in a distant. Review of Systems Review of Systems: Narrative: Left-sided weakness, cognition deficits, mobility dysfunction. Patient denies any problems with pain shortness breath or chest pain Functional Status Ambulation Ability Ability to Ambulate 10 Feet: Moderate Assistance X 1 Ambulation Assistive Devices: Cane, David Transfers Ability Ability to Transfer In/Out of Chair: Moderate Assistance X 1 Exam Narrative: Exam Narrative: left facial weakness is noted. Extraocular muscles are intact. Neck is supple. Heart rate rhythm is regular. Lungs are clear to auscultation. Abdomen is soft with G-tube site noted without redness. New Musculoskeletal exam reveals right upper right lower extremity strength is 4-5 left upper extremity strength as shoulder shrug but otherwise is flaccid. Left lower extremity strength is roughly 2+ to 3- and fatigues quickly. Objective Data Vital Signs Vital Signs: Vital Signs - 24 hr 01/03/21 20:00 01/03/21 21:35 01/04/21 06:00 Temperature 36.4 C 36.4 C Pulse Rate 82 82 79 Respiratory Rate 16 16 18 Blood Pressure 102/70 117/67 Pulse Oximetry 94 94 96 01/04/21 08:00 Temperature Pulse Rate 79 Respiratory Rate 18 Blood Pressure Pulse Oximetry 96 Intake/Output Intake/Output: Intake & Output 01/01/21 01/02/21 01/03/21 01/04/21 23:59 23:59 23:59 23:59 Intake Total 1110 Output Total 350 Balance -350 1110 Meds/Results Medications: Active Medications Generic Name Dose Route Start Last Admin Trade Name Freq PRN Reason Stop Dose Admin Acetaminophen 650 mg 12/15/20 23:20 12/22/20 08:20 Acetaminophen Elixir 325 Mg/10.15 Ml Udc FEED TUBE 650 mg QID PRN Administration Pain Rated 1-3 Albuterol 2 puff 12/15/20 22:13 Albuterol Sulfate (*Sp) Aerosol 1 Puff INHALATION Q4-6H PRN Shortness Of Breath Atorvastatin Calcium 40 mg 12/16/20 09:00 01/04/21 08:51 Atorvastatin 40 Mg Tablet FEED TUBE 40 mg DAILY NIKOLE Administration Diltiazem HCl 30 mg 12/16/20 12:05 01/04/21 12:13 Diltiazem Hcl 30 Mg Tablet FEED TUBE 30 mg Q6HR NIKOLE Administration Fluticasone Propionate 2 spray 12/15/20 22:13 Fluticasone Propionate 0.05% Na Spr 16 Gm Btl (*Bkc) NASAL DAILY PRN Congestion Furosemide 20 mg 12/15/20 22:13 Furosemide 20 Mg Tablet FEED TUBE DAILY PRN Edema Levothyroxine Sodium 50 mcg 12/16/20 06:30 01/04/21 05:11 Levothyroxine Sodium 50 Mcg Tablet FEED TUBE 50 mcg DAILY@0630 NIKOLE Administration Meclizine HCl 25 mg 12/15/20 22:13 Meclizine Hcl 25 Mg Tablet FEED TUBE BID PRN Dizziness Neomycin/Polymyxin/Bacitracin 1 applic 12/19/20 18:55 01/04/21 08:51 Neomycin/Polymyxin/Bacitracin Ointment 15 Gm Tube TOPICAL 1 applic QAM NIKOLE Administration Quetiapine Fumarate 12.5 mg 12/15/20 21:00 Quetiapine Fumarate 12.5 Mg Tablet FEED TUBE HS PRN NIGHTLY AGITATION Rivaroxaban 20 mg 12/16/20 17:00 01/03/21 17:11 Rivaroxaban 20 Mg Tablet FEED TUBE 20 mg DAILY@1700 NIKOLE Administration Radiology Results: ITS Impressions Contrast Injection Evaluation 12/15/20 21:08 IMPRESSION: 1. Gastrostomy tube in position. 2. Needle like foreign body. 3. Extensive colonic diverticulosis. Modified Barium Swallow 01/01/21 14:17 IMPRESSION: 1. Laryngeal penetration with multiple consistencies. No aspiration. 2. Please refer to the speech therapy report for recommendations. Labs Labs: Laboratory Results - last 24 hr 01/04/21 06:44 POC Capillary Glucose 126 H Progress Note: A&P Assessment and Plan (1) Brainstem stroke: Code(s): I63.9 - Cerebral infarction, unspecified Status: Acute (2) Old cardioembolic stroke with
--- NOTE | 2021-01-04 16:19 | PC.NURSE ---
Patient's discharge has been postponed due to transportation issues. Patient will be discharged to longterm tomorrow a.m.
[2021-01-04] MEDS: RIVAROXABAN 20 MG TABLET FEED TUBE (17:23)
[2021-01-04 20:10] VITALS: PULSE 75; RESP 20; O2SAT 94
[2021-01-04 21:43] VITALS: BP 113/64; PULSE 75; RESP 20; TEMP 36.2; O2SAT 94
[2021-01-05] MEDS: LEVOTHYROXINE SODIUM 50 MCG TABLET FEED TUBE (05:14)
[2021-01-05] MEDS: dilTIAZem HCL 30 MG TABLET FEED TUBE (05:14)
[2021-01-05 05:31] VITALS: BP 144/64; PULSE 83; RESP 18; TEMP 36; O2SAT 97
[2021-01-05 06:26] LABS: Glucose Point of Care 108 (65-105)
[2021-01-05] MEDS: ATORVASTATIN 40 MG TABLET FEED TUBE (08:38)
[2021-01-05] MEDS: NEOMYCIN/POLYMYXIN/BACITRACIN OINTMENT 15 GM TUBE 1 APPLIC TOPICAL (08:39)
--- NOTE | 2021-01-05 13:19 | PM.DS ---
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: Code(s): I69.359 - Hemiplegia and hemiparesis following cerebral infarction affecting unspecified side Status: Acute (3) Mild cognitive impairment: Code(s): G31.84 - Mild cognitive impairment, so stated Status: Acute (4) Atrial fibrillation: Code(s): I48.91 - Unspecified atrial fibrillation Status: Acute (5) Status post gastrostomy: Code(s): Z93.1 - Gastrostomy status Status: Acute (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 Patient continued to have significant left upper and left lower weakness. Upper extremity was flaccid. Lower extremity was 2/5 to 3/5. Patient remained NPO and tube feedings through the G-tube had no difficulty. Time Spent with Patient Time attestation: Total time spent providing and/or coordinating discharge services: patient was admitted for stroke rehabilitation. Patient had G-tube placement. Patient tolerated tube feedings well. Patient remained with significant left hemiplegia upper extremity more involved lower extremity. Upper extremity was essentially flaccid. Left lower extremity is roughly 2 to 3/5. If fatigues quickly. Exam Narrative: Exam Narrative: Patient is pleasant and oriented to self. Head reveals left facial droop. Extraocular muscles are intact. Neck is supple. Lungs are clear to auscultation. Abdomen is soft nontender with G-tube site noted. Musculoskeletal exam: Right-sided strength is 4-5 left upper extremity shoulder shrug is 2/5 and distal is flaccid. Left lower extremity strength essentially 2 to 3/5.ADMISSION FUNCTION: Eating Unable Oral Care substantial assistance Toileting Hygiene dependent Shower/Bathing dependent Upper Body Dressing substantial assistance Lower Body Dressing dependent [place] Footwear dependent Rolling Left and Right substantial assistance Sit to Lying substantial assist Lying to Sitting substantial assistance Sit to Stand depending Bed to Chair Transfers dependent Toilet Transfers dependent Car Transfers unable Walking 10 feet unable Walking 50' with Two Turns unable Walking 150' unable Curb or unable 12 steps ] unable Picking Up Object un able Wheelchair Mobility 50' partial assistance Wheelchair Mobility 150' partial assistance GOALS: Eating dependent Oral Care INDEPENDENT Toileting Hygiene partial assistance Shower/Bathing partial assistance Upper Body Dressing supervision Lower Body Dressing partial assistance [place] Footwear supervision Rolling Left and Right supervision Sit to Lying supervision Lying to Sitting supervision Sit to Stand supervision Bed to Chair Transfers partial assistance Toilet Transfers partial assistance Car Transfers supervision Walking 10' supervision walking 10 ft on uneven surfaces substantial assistance Walking 50' with Two Turns unable Walking 150' unable Curb or Step partial assistance 4 Steps partial assistance 12 Steps unable Picking Up Object partial a
== END 2021-01-05 08:45 | DRG 57 ==
PROVIDERS: Admitting Provider Psychiatry & Neurology Neurology; PCP Physician Assistant; Visit Provider Physical Medicine & Rehabilitation
DX: I69.354 Hemiplegia and hemiparesis following cerebral infarction affecting left non-dominant side (principal); I69.898 Other sequelae of other cerebrovascular disease; I69.391 Dysphagia following cerebral infarction; I69.319 Unspecified symptoms and signs involving cognitive functions following cerebral infarction; I69.392 Facial weakness following cerebral infarction; H53.8 Other visual disturbances; R13.10 Dysphagia, unspecified; Z20.822 Contact with and (suspected) exposure to COVID-19; E78.5 Hyperlipidemia, unspecified; E03.9 Hypothyroidism, unspecified; F41.9 Anxiety disorder, unspecified; I48.91 Unspecified atrial fibrillation; I50.9 Heart failure, unspecified; I67.1 Cerebral aneurysm, nonruptured; I08.0 Rheumatic disorders of both mitral and aortic valves; K21.9 Gastro-esophageal reflux disease without esophagitis; M81.0 Age-related osteoporosis without current pathological fracture; Z79.01 Long term (current) use of anticoagulants; Z93.1 Gastrostomy status; Z98.890 Other specified postprocedural states; Z85.3 Personal history of malignant neoplasm of breast; Z86.718 Personal history of other venous thrombosis and embolism; Z87.891 Personal history of nicotine dependence
CPT/HCPCS: 36415; 49465; 80048; 82948; 85025; 92507; 92522; 92523; 92526; 92610; 92611; 97110; 97112; 97116; 97161; 97166; 97530; 97535; 97542; A9270; C9803; U0003; U0005